=== PATIENT | male | born 1965 | race African-American/Black ===

== ENCOUNTER → 2019-12-15 | Day surgery (SDC) | payer OTHER ==
[~2019-12-15] MED LIST: ALPRAZOLAM2 MG PO; FENTANYL CITRATE/PF 100MCG/2 ML INJ ONE; HUMALOG SQ; PROPOFOL IV EMULSION 10 MG/ML 20 ML VIAL ONE; ULTRAM 50MG50 MG PO
--- OUTSIDE RECORDS SUMMARY | 2019-12-15 11:35 | XMS REPORT ---
[facility] Address Unknown Phone Unavailable Care Team Providers Care Rivet Sticker Name Role Phone UNKNOWN, REFFERING PP Unavailable RASSOLI, AMIR Unavailable Unavailable BADAR, VANIA Unavailable Unavailable Problems This patient has no known problems. Allergies, Adverse Reactions, Alerts This patient has no known allergies or adverse reactions. Medications This patient has no known medications. Encounters Start Date/Time End Date/Time Encounter Type Admission Type Attending [facility] Care Facility Care Department Encounter ID 2019-02-05 09:13:39 Inpatient [facility] [id number] 2019-02-04 15:26:05 Inpatient [facility] [id number] 2019-02-03 11:28:53 Inpatient [facility] [id number] 2019-02-03 00:00:00 Inpatient [facility] [id number] 2019-06-18 15:34:00 2019-06-18 15:34:00 Emergency [facility] [id number] 2019-03-30 00:00:00 2019-03-30 00:00:00 Outpatient [facility] [id number] 2019-02-11 00:00:00 2019-02-11 00:00:00 Outpatient [facility] [id number] 2019-02-11 00:00:00 2019-02-11 00:00:00 Outpatient [facility] [id number] 2019-02-08 00:34:53 2019-02-08 00:34:53 Emergency [facility] [id number] 2019-02-07 16:14:38 2019-02-07 16:14:38 Emergency [facility] [id number] 2019-02-07 15:47:08 2019-02-07 15:47:08 Emergency [facility] [id number] 2019-02-04 00:00:00 2019-02-04 00:00:00 Outpatient [facility] [id number] 2019-02-03 06:28:59 2019-02-03 06:28:59 Emergency [facility] [id number] 2019-02-03 03:33:48 2019-02-03 03:33:48 Inpatient [facility] [id number] 2019-02-02 00:00:00 2019-02-02 00:00:00 Outpatient [facility] [id number] 2018-12-28 09:29:52 2018-12-28 09:29:52 Outpatient [facility] [id number] 2018-12-28 00:00:00 2018-12-28 00:00:00 Outpatient [facility] [id number] 2018-12-25 00:00:00 2018-12-25 00:00:00 Outpatient [facility] [id number] 2018-12-25 00:00:00 2018-12-25 00:00:00 Outpatient [facility] [id number] 2018-12-09 16:27:04 2018-12-09 16:27:04 Outpatient [facility] [id number] 2018-12-08 00:00:00 2018-12-08 00:00:00 Outpatient [facility] [id number] 2018-12-03 18:07:20 2018-12-03 18:07:20 Outpatient [facility] [id number] 2018-11-26 15:14:29 2018-11-26 15:14:29 Outpatient [facility] [id number] 2018-11-17 00:00:00 2018-11-17 00:00:00 Outpatient [facility] [id number] 2018-11-17 00:00:00 2018-11-17 00:00:00 Outpatient [facility] [id number] 2018-11-13 11:23:08 2018-11-13 11:23:08 Outpatient [facility] [id number] 2018-09-29 00:00:00 2018-09-29 00:00:00 Outpatient [facility] [id number] 2018-09-07 16:12:37 2018-09-07 16:12:37 Outpatient [facility] [id number] 2018-08-26 00:00:00 2018-08-26 00:00:00 Outpatient [facility] [id number] 2018-08-26 00:00:00 2018-08-26 00:00:00 Outpatient [facility] [id number] 2018-08-25 11:55:41 2018-08-25 11:55:41 Outpatient [facility] [id number] 2018-08-25 00:00:00 2018-08-25 00:00:00 Outpatient [facility] [id number] 2018-08-24 00:00:00 2018-08-24 00:00:00 Outpatient [facility] [id number] 2018-08-18 00:00:00 2018-08-18 00:00:00 Outpatient [facility] [id number] 2018-08-14 00:00:00 2018-08-14 00:00:00 Outpatient [facility] [id number] 2018-08-14 00:00:00 2018-08-14 00:00:00 Outpatient [facility] [id number] 2018-08-12 07:01:52 2018-08-12 07:01:52 Emergency [facility] [id number] 2018-08-12 06:51:12 2018-08-12 06:51:12 Emergency [facility] [id number] 2018-08-12 06:25:40 2018-08-12 06:25:40 Emergency [facility] [id number] 2018-08-12 00:00:00 2018-08-12 00:00:00 Outpatient [facility] [id number] 2018-08-12 00:00:00 2018-08-12 00:00:00 Outpatient [facility] [id number] 2018-08-03 00:00:00 2018-08-03 00:00:00 Outpatient [facility] [id number] 2018-07-31 00:00:00 2018-07-31 00:00:00 Outpatient [facility] [id number] 2018-07-13 00:00:00 2018-07-13 00:00:00 Outpatient [facility] [id number] 2018-06-29 00:00:00 2018-06-29 00:00:00 Outpatient [facility] [id number] 2018-06-01 13:56:51 2018-06-01 13:56:51 Outpatient [facility] [id number] 2018-05-15 00:00:00 2018-05-15 00:00:00 Outpatient [facility] [id number] 2018-05-08 09:01:56 2018-05-08 09:01:56 Outpatient [facility] [id number] 2018-05-05 09:41:35 2018-05-05 09:41:35 Outpatient [facility] [id number] 2018-04-28 08:35:35 2018-04-28 08:35:35 Outpatient [facility] [id number] 2018-04-23 02:09:33 2018-04-23 02:09:33 Emergency [facility] [id number] 2018-04-21 15:59:22 2018-04-21 15:59:22 Outpatient [facility] [id number] 2018-04-20 18:16:36 2018-04-20 18:16:36 Outpatient [facility] [id number] 2018-04-17 12:35:21 2018-04-17 12:35:21 Outpatient [facility] [id number] 2018-04-15 15:00:18 2018-04-15 15:00:18 Emergency [facility] [id number] 2018-04-15 13:57:45 2018-04-15 13:57:45 Outpatient [facility] [id number] 2018-04-15 11:13:55 2018-04-15 11:13:55 Emergency [facility] [id number] 2018-04-15 00:00:00 2018-04-15 00:00:00 Outpatient [facility] [id number] 2018-04-14 09:03:00 2018-04-14 09:03:00 Emergency [facility] [id number] 2018-04-08 08:37:15 2018-04-08 08:37:15 Outpatient [facility] [id number] 2018-04-02 00:00:00 2018-04-02 00:00:00 Outpatient [facility] [id number] 2018-04-02 00:00:00 2018-04-02 00:00:00 Outpatient [facility] [id number] 2018-04-01 12:57:41 2018-04-01 12:57:41 Emergency [facility] [id number] 2018-04-01 12:40:35 2018-04-01 12:40:35 Emergency [facility] [id number] 2018-04-01 07:56:52 2018-04-01 07:56:52 Emergency [facility] [id number] 2018-04-01 04:16:50 2018-04-01 04:16:50 Emergency [facility] [id number] 2018-04-01 00:00:00 2018-04-01 00:00:00 Outpatient [facility] [id number] 2018-03-31 15:21:39 2018-03-31 15:21:39 Outpatient [facility] [id number] 2018-03-31 14:16:05 2018-03-31 14:16:05 Outpatient [facility] [id number] 2018-03-26 08:46:00 2018-03-26 08:46:00 Outpatient [facility] [id number] 2018-03-24 00:00:00 2018-03-24 00:00:00 Outpatient [facility] [id number] 2018-03-20 00:00:00 2018-03-20 00:00:00 Outpatient [facility] [id number] 2018-03-16 21:52:37 2018-03-16 21:52:37 Emergency [facility] [id number] 2018-03-16 20:55:29 2018-03-16 20:55:29 Emergency [facility] [id number] 2018-03-16 17:21:50 2018-03-16 17:21:50 Emergency [facility] [id number] 2018-03-16 15:45:43 2018-03-16 15:45:43 Outpatient [facility] [id number] 2018-03-16 13:36:57 2018-03-16 13:36:57 Outpatient [facility] [id number] 2018-03-16 00:00:00 2018-03-16 00:00:00 Emergency [facility] [id number] 2018-03-09 17:31:27 2018-03-09 17:31:27 Outpatient [facility] [id number] 2018-03-04 11:50:05 2018-03-04 11:50:05 Outpatient [facility] [id number] 2018-02-26 14:02:34 2018-02-26 14:02:34 Outpatient [facility] [id number] 2018-02-23 16:55:59 2018-02-23 16:55:59 Outpatient [facility] [id number] 2018-02-21 10:18:15 2018-02-21 10:18:15 Emergency [facility] [id number] 2018-02-20 15:01:06 2018-02-20 15:01:06 Outpatient [facility] [id number] 2018-02-20 14:24:00 2018-02-20 14:24:00 Emergency [facility] [id number] 2018-02-20 00:00:00 2018-02-20 00:00:00 Outpatient [facility] [id number] 2018-02-20 00:00:00 2018-02-20 00:00:00 Outpatient [facility] [id number] 2018-02-19 13:11:25 2018-02-19 13:11:25 Outpatient [facility] [id number] 2018-02-19 00:00:00 2018-02-19 00:00:00 Outpatient [facility] [id number] 2018-02-17 10:35:11 2018-02-17 10:35:11 Outpatient [facility] [id number] 2018-02-12 20:17:33 2018-02-12 20:17:33 Emergency [facility] [id number] 2018-02-12 16:19:07 2018-02-12 16:19:07 Emergency [facility] [id number] 2018-02-02 00:00:00 2018-02-02 00:00:00 Outpatient [facility] [id number] 2018-01-30 20:13:39 2018-01-30 20:13:39 Emergency [facility] [id number] 2018-01-15 00:00:00 2018-01-15 00:00:00 Outpatient [facility] [id number] 2018-01-14 14:00:46 2018-01-14 14:00:46 Outpatient [facility] [id number] 2018-01-14 00:00:00 2018-01-14 00:00:00 Outpatient [facility] [id number] 2018-01-12 15:12:51 2018-01-12 15:12:51 Outpatient [facility] [id number] 2018-01-10 07:18:13 2018-01-10 07:18:13 Emergency [facility] [id number] 2018-01-09 13:53:00 2018-01-09 13:53:00 Emergency [facility] [id number] 2018-01-05 00:00:00 2018-01-05 00:00:00 Outpatient [facility] [id number] 2018-01-05 00:00:00 2018-01-05 00:00:00 Outpatient [facility] [id number] 2017-12-31 15:07:51 2017-12-31 15:07:51 Outpatient [facility] [id number] 2017-12-25 08:17:25 2017-12-25 08:17:25 Outpatient [facility] [id number] 2017-12-25 06:23:18 2017-12-25 06:23:18 Emergency [facility] [id number] 2017-12-23 00:00:00 2017-12-23 00:00:00 Outpatient [facility] [id number] 2017-12-22 00:00:00 2017-12-22 00:00:00 Outpatient [facility] [id number] 2017-12-22 00:00:00 2017-12-22 00:00:00 Outpatient [facility] [id number] 2017-12-15 00:00:00 2017-12-15 00:00:00 Outpatient [facility] [id number] 2017-12-08 00:00:00 2017-12-08 00:00:00 Outpatient [facility] [id number] 2017-12-02 00:00:00 2017-12-02 00:00:00 Outpatient [facility] [id number] 2017-12-02 00:00:00 2017-12-02 00:00:00 Outpatient [facility] [id number] 2017-11-27 00:00:00 2017-11-27 00:00:00 Outpatient [facility] [id number] 2017-11-18 00:00:00 2017-11-18 00:00:00 Outpatient [facility] [id number] 2017-11-14 00:00:00 2017-11-14 00:00:00 Outpatient [facility] [id number] 2017-11-08 12:57:31 2017-11-08 12:57:31 Emergency [facility] [id number] 2017-11-06 10:52:29 2017-11-06 10:52:29 Emergency [facility] [id number] 2017-11-06 10:11:35 2017-11-06 10:11:35 Outpatient [facility] [id number] 2017-11-06 00:00:00 2017-11-06 00:00:00 Outpatient [facility] [id number] 2017-11-05 00:00:00 2017-11-05 00:00:00 Outpatient [facility] [id number] 2017-11-04 16:19:22 2017-11-04 16:19:22 Outpatient [facility] [id number] 2017-11-04 14:09:31 2017-11-04 14:09:31 Outpatient [facility] [id number] 2017-11-04 00:00:00 2017-11-04 00:00:00 Outpatient [facility] [id number] 2017-10-31 21:21:13 2017-10-31 21:21:13 Outpatient [facility] [id number] 2017-10-31 11:14:45 2017-10-31 11:14:45 Emergency [facility] [id number] 2017-10-29 00:00:00 2017-10-29 00:00:00 Outpatient [facility] [id number] 2017-10-22 00:00:00 2017-10-22 00:00:00 Outpatient [facility] [id number] 2017-10-21 00:00:00 2017-10-21 00:00:00 Outpatient [facility] [id number] 2017-10-20 11:22:26 2017-10-20 11:22:26 Outpatient [facility] [id number] 2017-10-20 00:00:00 2017-10-20 00:00:00 Outpatient [facility] [id number] 2017-10-17 00:00:00 2017-10-17 00:00:00 Outpatient [facility] [id number] 2017-10-17 00:00:00 2017-10-17 00:00:00 Outpatient [facility] [id number] 2017-10-17 00:00:00 2017-10-17 00:00:00 Outpatient [facility] [id number] 2017-10-17 00:00:00 2017-10-17 00:00:00 Outpatient [facility] [id number] 2017-10-16 00:00:00 2017-10-16 00:00:00 Outpatient [facility] [id number] 2017-10-09 00:00:00 2017-10-09 00:00:00 Outpatient [facility] [id number] 2017-10-07 14:09:41 2017-10-07 00:00:00 Inpatient [facility] [id number] 2017-10-07 08:05:01 2017-10-07 00:00:00 Inpatient [facility] [id number] 2017-10-06 00:03:09 2017-10-06 00:03:09 Emergency [facility] [id number] 2017-10-06 00:00:00 2017-10-06 00:00:00 Outpatient [facility] [id number] 2017-10-05 23:54:42 2017-10-05 23:54:42 Emergency [facility] [id number] 2017-10-05 23:27:39 2017-10-05 23:27:39 Inpatient [facility] [id number] 2017-10-05 00:00:00 2017-10-05 00:00:00 Emergency [facility] [id number] 2017-10-03 07:28:06 2017-10-03 07:28:06 Outpatient [facility] [id number] 2017-10-03 00:00:00 2017-10-03 00:00:00 Outpatient [facility] [id number] 2017-09-30 00:00:00 2017-09-30 00:00:00 Outpatient [facility] [id number] 2017-09-23 16:44:54 2017-09-23 16:44:54 Outpatient [facility] [id number] 2017-09-23 13:55:30 2017-09-23 13:55:30 Outpatient [facility] [id number] 2017-09-11 10:45:01 2017-09-11 10:45:01 Outpatient [facility] [id number] 2017-09-03 00:00:00 2017-09-03 00:00:00 Outpatient [facility] [id number] 2017-08-28 14:09:15 2017-08-28 14:09:15 Outpatient [facility] [id number] 2017-08-19 10:30:06 2017-08-19 10:30:06 Outpatient [facility] [id number] 2017-08-17 08:10:00 2017-08-17 08:10:00 Emergency [facility] [id number] 2017-08-16 10:59:31 2017-08-16 10:59:31 Emergency [facility] [id number] 2017-08-16 09:11:58 2017-08-16 09:11:58 Outpatient [facility] [id number] 2017-08-16 08:38:54 2017-08-16 08:38:54 Emergency [facility] [id number] 2017-08-16 08:38:49 2017-08-16 08:38:49 Emergency [facility] [id number] 2017-08-16 00:00:00 2017-08-16 00:00:00 Emergency [facility] [id number] 2017-08-16 00:00:00 2017-08-16 00:00:00 Outpatient [facility] [id number] 2017-08-14 17:46:36 2017-08-14 17:46:36 Outpatient [facility] [id number] 2017-08-11 05:49:29 2017-08-11 05:49:29 Outpatient [facility] [id number] 2017-08-11 01:12:29 2017-08-11 01:12:29 Emergency [facility] [id number] 2017-08-10 20:37:35 2017-08-10 20:37:35 Emergency [facility] [id number] 2017-08-10 20:00:02 2017-08-10 20:00:02 Outpatient [facility] [id number] 2017-08-10 00:00:00 2017-08-10 00:00:00 Emergency [facility] [id number] 2017-08-07 21:00:00 2017-08-07 21:00:00 Inpatient [facility] [id number] 2017-07-30 00:00:00 2017-07-30 00:00:00 Outpatient [facility] [id number] 2017-07-30 00:00:00 2017-07-30 00:00:00 Outpatient [facility] [id number] 2017-07-21 09:34:26 2017-07-21 09:34:26 Outpatient [facility] [id number] 2017-07-21 00:00:00 2017-07-21 00:00:00 Outpatient [facility] [id number] 2017-07-21 00:00:00 2017-07-21 00:00:00 Outpatient [facility] [id number] 2017-07-16 15:47:17 2017-07-16 15:47:17 Outpatient [facility] [id number] 2017-07-15 08:18:07 2017-07-15 08:18:07 Outpatient [facility] [id number] 2017-07-14 00:00:00 2017-07-14 00:00:00 Outpatient [facility] [id number] 2017-07-10 10:27:34 2017-07-10 10:27:34 Outpatient [facility] [id number] 2017-07-10 00:00:00 2017-07-10 00:00:00 Outpatient [facility] [id number] 2017-06-25 09:22:00 2017-06-25 09:22:00 Outpatient [facility] [id number] 2017-06-25 08:20:12 2017-06-25 08:20:12 Outpatient [facility] [id number] 2017-06-25 00:00:00 2017-06-25 00:00:00 Outpatient [facility] [id number] 2017-06-23 00:00:00 2017-06-23 00:00:00 Outpatient [facility] [id number] 2017-06-23 00:00:00 2017-06-23 00:00:00 Outpatient [facility] [id number] 2017-06-16 13:45:52 2017-06-16 13:45:52 Outpatient [facility] [id number] 2017-06-13 13:50:02 2017-06-13 13:50:02 Outpatient [facility] [id number] 2017-06-02 10:05:47 2017-06-02 10:05:47 Outpatient [facility] [id number] 2017-05-27 00:00:00 2017-05-27 00:00:00 Outpatient [facility] [id number] 2017-05-27 00:00:00 2017-05-27 00:00:00 Outpatient [facility] [id number] 2017-05-27 00:00:00 2017-05-27 00:00:00 Outpatient [facility] [id number] 2017-05-26 16:05:48 2017-05-26 16:05:48 Outpatient [facility] [id number] 2017-05-22 13:14:34 2017-05-22 13:14:34 Outpatient [facility] [id number] 2017-05-19 11:33:17 2017-05-19 11:33:17 Outpatient [facility] [id number] 2017-05-19 00:00:00 2017-05-19 00:00:00 Outpatient [facility] [id number] 2017-05-05 13:05:35 2017-05-05 13:05:35 Outpatient [facility] [id number] 2017-04-29 18:57:43 2017-04-29 18:57:43 Outpatient [facility] [id number] 2017-04-25 00:41:00 2017-04-25 00:41:00 Emergency [facility] [id number] 2017-04-25 00:00:00 2017-04-25 00:00:00 Outpatient [facility] [id number] 2017-04-25 00:00:00 2017-04-25 00:00:00 Outpatient [facility] [id number] 2017-04-25 00:00:00 2017-04-25 00:00:00 Outpatient [facility] [id number] 2017-04-25 00:00:00 2017-04-25 00:00:00 Outpatient [facility] [id number] 2017-04-24 17:50:52 2017-04-24 17:50:52 Outpatient [facility] [id number] 2017-04-24 14:55:23 2017-04-24 14:55:23 Outpatient [facility] [id number] 2017-04-24 10:45:55 2017-04-24 10:45:55 Outpatient [facility] [id number] 2017-04-22 17:33:01 2017-04-22 17:33:01 Outpatient [facility] [id number] 2017-04-22 15:42:23 2017-04-22 15:42:23 Outpatient [facility] [id number] 2017-04-22 12:52:58 2017-04-22 12:52:58 Outpatient [facility] [id number] Results Test Description Test Time Test Comments Text Results Atomic Results Result Comments Comprehensive Metabolic Panel 2019-12-03 03:33:21 Sodium Level (test code=Sodium Level) 139.0 mmol/L 135.0-145.0 Potassium Level (test code=Potassium Level) 3.3 mmol/L 3.5-5.1 Chloride Level (test code=Chloride Level) 103 mmol/L 98-105 CO2 (test code=CO2) 23 mmol/L 22-29 Anion Gap (test code=Anion Gap) 13 mmol/L 7-16 BUN (test code=BUN) 12.10 mg/dL 6.00-20.00 Creatinine Level (test code=Creatinine Level) 1.00 mg/dL 0.70-1.20 BUN/Creat Ratio (test code=BUN/Creat Ratio) 12 Glucose Level (test code=Glucose Level) 113 mg/dL 70-115 Calcium Level (test code=Calcium Level) 8.8 mg/dL 8.3-10.5 Alk Phos (test code=Alk Phos) 115 U/L 40-129 Bilirubin Total (test code=Bilirubin Total) 0.5 mg/dL 0.1-0.9 Albumin Level (test code=Albumin Level) 3.8 g/dL 3.5-5.2 Protein Total (test code=Protein Total) 6.5 g/dL 6.4-8.3 ALT (test code=ALT) 18 U/L 1-41 AST (test code=AST) see comment U/L 1-40 ast=29Specimen hemolyzed. Globulin (test code=Globulin) 2.7 g/dL 2.9-3.1 A/G Ratio (test code=A/G Ratio) 1.4 ratio Comprehensive Metabolic [id number] 03:33:21* Test Item Value Reference Range Comments Sodium Level (test code=Sodium Level) 139.0 mmol/L 135.0-145.0 Potassium Level (test code=Potassium Level) 3.3 mmol/L 3.5-5.1 Chloride Level (test code=Chloride Level) 103 mmol/L 98-105 CO2 (test code=CO2) 23 mmol/L 22-29 Anion Gap (test code=Anion Gap) 13 mmol/L 7-16 BUN (test code=BUN) 12.10 mg/dL 6.00-20.00 Creatinine Level (test code=Creatinine Level) 1.00 mg/dL 0.70-1.20 BUN/Creat Ratio (test code=BUN/Creat Ratio) 12 Glucose Level (test code=Glucose Level) 113 mg/dL 70-115 Calcium Level (test code=Calcium Level) 8.8 mg/dL 8.3-10.5 Alk Phos (test code=Alk Phos) 115 U/L 40-129 Bilirubin Total (test code=Bilirubin Total) 0.5 mg/dL 0.1-0.9 Albumin Level (test code=Albumin Level) 3.8 g/dL 3.5-5.2 Protein Total (test code=Protein Total) 6.5 g/dL 6.4-8.3 ALT (test code=ALT) 18 U/L 1-41 AST (test code=AST) see comment U/L 1-40 ast=29Specimen hemolyzed. Globulin (test code=Globulin) 2.7 g/dL 2.9-3.1 A/G Ratio (test code=A/G Ratio) 1.4 ratio eGFR AA (test code=eGFR AA) >60 mL/min/1.73 m2 eGFR (estimated Glomerular Filtration Rate) is an estimated value, calculated from the patient's serum creatinine using the MDRD equation. It is NOT the patient's actual GFR. The eGFR provides a more clinically useful measure of kidney disease than serum creatinine alone.This calculation takes sex and race into account, if the information is provided. If the race is not provided, and the patient is -[place], multiply by 1.212. If sex is not provided, and the patient is female, multiply by 0.742. Results for patients <18 years of age have not been validated by the MDRD study and should be interpreted with caution. eGFR Result Interpretation:eGFR > or=60 is in the Normal RangeeGFR < 60 may mean kidney diseaseeGFR < 15 may mean kidney failure Ranges recommended by the [employer] Foundation, http://nkdep.nih.gov eGFR Non-AA (test code=eGFR Non-AA) >60.00 mL/min/1.73 m2 eGFR (estimated Glomerular Filtration Rate) is an estimated value, calculated from the patient's serum creatinine using the MDRD equation. It is NOT the patient's actual GFR. The eGFR provides a more clinically useful measure of kidney disease than serum creatinine alone.This calculation takes sex and race into account, if the information is provided. If the race is not provided, and the patient is -[place], multiply by 1.212. If sex is not provided, and the patient is female, multiply by 0.742. Results for patients <18 years of age have not been validated by the MDRD study and should be interpreted with caution. eGFR Result Interpretation:eGFR > or=60 is in the Normal RangeeGFR < 60 may mean kidney diseaseeGFR < 15 may mean kidney failure Ranges recommended by the National [employer] Foundation, http://nkdep.nih.gov Comprehensive Metabolic [id number] 03:33:21* Test Item Value Reference Range Comments Sodium Level (test code=Sodium Level) 139.0 mmol/L 135.0-145.0 Potassium Level (test code=Potassium Level) 3.3 mmol/L 3.5-5.1 Chloride Level (test code=Chloride Level) 103 mmol/L 98-105 CO2 (test code=CO2) 23 mmol/L 22-29 Anion Gap (test code=Anion Gap) 13 mmol/L 7-16 BUN (test code=BUN) 12.10 mg/dL 6.00-20.00 Creatinine Level (test code=Creatinine Level) 1.00 mg/dL 0.70-1.20 BUN/Creat Ratio (test code=BUN/Creat Ratio) 12 Glucose Level (test code=Glucose Level) 113 mg/dL 70-115 Calcium Level (test code=Calcium Level) 8.8 mg/dL 8.3-10.5 Alk Phos (test code=Alk Phos) 115 U/L 40-129 Bilirubin Total (test code=Bilirubin Total) 0.5 mg/dL 0.1-0.9 Albumin Level (test code=Albumin Level) 3.8 g/dL 3.5-5.2 Protein Total (test code=Protein Total) 6.5 g/dL 6.4-8.3 ALT (test code=ALT) 18 U/L 1-41 AST (test code=AST) see comment U/L 1-40 ast=29Specimen hemolyzed. Globulin (test code=Globulin) 2.7 g/dL 2.9-3.1 A/G Ratio (test code=A/G Ratio) 1.4 ratio eGFR AA (test code=eGFR AA) >60 mL/min/1.73 m2 eGFR (estimated Glomerular Filtration Rate) is an estimated value, calculated from the patient's serum creatinine using the MDRD equation. It is NOT the patient's actual GFR. The eGFR provides a more clinically useful measure of kidney disease than serum creatinine alone.This calculation takes sex and race into account, if the information is provided. If the race is not provided, and the patient is -[place], multiply by 1.212. If sex is not provided, and the patient is female, multiply by 0.742. Results for patients <18 years of age have not been validated by the MDRD study and should be interpreted with caution. eGFR Result Interpretation:eGFR > or=60 is in the Normal RangeeGFR < 60 may mean kidney diseaseeGFR < 15 may mean kidney failure Ranges recommended by the National Kidney Foundation, http://nkdep.nih.gov eGFR Non-AA (test code=eGFR Non-AA) >60.00 mL/min/1.73 m2 eGFR (estimated Glomerular Filtration Rate) is an estimated value, calculated from the patient's serum creatinine using the MDRD equation. It is NOT the patient's actual GFR. The eGFR provides a more clinically useful measure of kidney disease than serum creatinine alone.This calculation takes sex and race into account, if the information is provided. If the race is not provided, and the patient is -Pakistani, multiply by 1.212. If sex is not provided, and the patient is female, multiply by 0.742. Results for patients <18 years of age have not been validated by the MDRD study and should be interpreted with caution. eGFR Result Interpretation:eGFR > or=60 is in the Normal RangeeGFR < 60 may mean kidney diseaseeGFR < 15 may mean kidney failure Ranges recommended by the National Kidney Foundation, http://nkdep.nih.gov Lipase [id number] 03:33:21* Test Item Value Reference Range Comments Lipase Level (test code=Lipase Level) 19 U/L -60 Lipase [id number] 23:31:04* Test Item Value Reference Range Comments Lipase Level (test code=Lipase Level) 30 U/L -60 Comprehensive Metabolic [id number] 23:31:03* Test Item Value Reference Range Comments Sodium Level (test code=Sodium Level) 138.0 mmol/L 135.0-145.0 Potassium Level (test code=Potassium Level) see comment mmol/L 3.5-5.1 k=5.4ast=59Specimen slightly hemolyzed; K and AST may be falsely elevated. Suggest verify by recollect.sridhar Chloride Level (test code=Chloride Level) 104 mmol/L 98-105 CO2 (test code=CO2) 23 mmol/L 22-29 Anion Gap (test code=Anion Gap) 11 mmol/L 7-16 BUN (test code=BUN) 17.40 mg/dL 6.00-20.00 Creatinine Level (test code=Creatinine Level) 1.10 mg/dL 0.70-1.20 BUN/Creat Ratio (test code=BUN/Creat Ratio) 16 Glucose Level (test code=Glucose Level) 256 mg/dL 70-115 Calcium Level (test code=Calcium Level) 8.5 mg/dL 8.3-10.5 Alk Phos (test code=Alk Phos) 86 U/L 40-129 Bilirubin Total (test code=Bilirubin Total) 0.3 mg/dL 0.1-0.9 Albumin Level (test code=Albumin Level) 3.2 g/dL 3.5-5.2 Protein Total (test code=Protein Total) 5.9 g/dL 6.4-8.3 ALT (test code=ALT) 21 U/L 1-41 AST (test code=AST) see comment U/L 1-40 k=5.4ast=59Specimen slightly hemolyzed; K and AST may be falsely elevated. Suggest verify by recollect.marioer Globulin (test code=Globulin) 2.7 g/dL 2.9-3.1 A/G Ratio (test code=A/G Ratio) 1.2 ratio Comprehensive Metabolic [id number] 23:31:03* Test Item Value Reference Range Comments Sodium Level (test code=Sodium Level) 138.0 mmol/L 135.0-145.0 Potassium Level (test code=Potassium Level) see comment mmol/L 3.5-5.1 k=5.4ast=59Specimen slightly hemolyzed; K and AST may be falsely elevated. Suggest verify by recollect.marioer Chloride Level (test code=Chloride Level) 104 mmol/L 98-105 CO2 (test code=CO2) 23 mmol/L 22-29 Anion Gap (test code=Anion Gap) 11 mmol/L 7-16 BUN (test code=BUN) 17.40 mg/dL 6.00-20.00 Creatinine Level (test code=Creatinine Level) 1.10 mg/dL 0.70-1.20 BUN/Creat Ratio (test code=BUN/Creat Ratio) 16 Glucose Level (test code=Glucose Level) 256 mg/dL 70-115 Calcium Level (test code=Calcium Level) 8.5 mg/dL 8.3-10.5 Alk Phos (test code=Alk Phos) 86 U/L 40-129 Bilirubin Total (test code=Bilirubin Total) 0.3 mg/dL 0.1-0.9 Albumin Level (test code=Albumin Level) 3.2 g/dL 3.5-5.2 Protein Total (test code=Protein Total) 5.9 g/dL 6.4-8.3 ALT (test code=ALT) 21 U/L 1-41 AST (test code=AST) see comment U/L 1-40 k=5.4ast=59Specimen slightly hemolyzed; K and AST may be falsely elevated. Suggest verify by recollect.marioer Globulin (test code=Globulin) 2.7 g/dL 2.9-3.1 A/G Ratio (test code=A/G Ratio) 1.2 ratio eGFR AA (test code=eGFR AA) >60 mL/min/1.73 m2 eGFR (estimated Glomerular Filtration Rate) is an estimated value, calculated from the patient's serum creatinine using the MDRD equation. It is NOT the patient's actual GFR. The eGFR provides a more clinically useful measure of kidney disease than serum creatinine alone.This calculation takes sex and race into account, if the information is provided. If the race is not provided, and the patient is -Pakistani, multiply by 1.212. If sex is not provided, and the patient is female, multiply by 0.742. Results for patients <18 years of age have not been validated by the MDRD study and should be interpreted with caution. eGFR Result Interpretation:eGFR > or=60 is in the Normal RangeeGFR < 60 may mean kidney diseaseeGFR < 15 may mean kidney failure Ranges recommended by the National Kidney Foundation, http://nkdep.nih.gov Comprehensive Metabolic [id number] 23:31:03* Test Item Value Reference Range Comments Sodium Level (test code=Sodium Level) 138.0 mmol/L 135.0-145.0 Potassium Level (test code=Potassium Level) see comment mmol/L 3.5-5.1 k=5.4ast=59Specimen slightly hemolyzed; K and AST may be falsely elevated. Suggest verify by recollect.sridhar Chloride Level (test code=Chloride Level) 104 mmol/L 98-105 CO2 (test code=CO2) 23 mmol/L 22-29 Anion Gap (test code=Anion Gap) 11 mmol/L 7-16 BUN (test code=BUN) 17.40 mg/dL 6.00-20.00 Creatinine Level (test code=Creatinine Level) 1.10 mg/dL 0.70-1.20 BUN/Creat Ratio (test code=BUN/Creat Ratio) 16 Glucose Level (test code=Glucose Level) 256 mg/dL 70-115 Calcium Level (test code=Calcium Level) 8.5 mg/dL 8.3-10.5 Alk Phos (test code=Alk Phos) 86 U/L 40-129 Bilirubin Total (test code=Bilirubin Total) 0.3 mg/dL 0.1-0.9 Albumin Level (test code=Albumin Level) 3.2 g/dL 3.5-5.2 Protein Total (test code=Protein Total) 5.9 g/dL 6.4-8.3 ALT (test code=ALT) 21 U/L 1-41 AST (test code=AST) see comment U/L 1-40 k=5.4ast=59Specimen slightly hemolyzed; K and AST may be falsely elevated. Suggest verify by recollect.marioer Globulin (test code=Globulin) 2.7 g/dL 2.9-3.1 A/G Ratio (test code=A/G Ratio) 1.2 ratio eGFR AA (test code=eGFR AA) >60 mL/min/1.73 m2 eGFR (estimated Glomerular Filtration Rate) is an estimated value, calculated from the patient's serum creatinine using the MDRD equation. It is NOT the patient's actual GFR. The eGFR provides a more clinically useful measure of kidney disease than serum creatinine alone.This calculation takes sex and race into account, if the information is provided. If the race is not provided, and the patient is -[place]istani, multiply by 1.212. If sex is not provided, and the patient is female, multiply by 0.742. Results for patients <18 years of age have not been validated by the MDRD study and should be interpreted with caution. eGFR Result Interpretation:eGFR > or=60 is in the Normal RangeeGFR < 60 may mean kidney diseaseeGFR < 15 may mean kidney failure Ranges recommended by the National Kidney Foundation, http://nkdep.nih.gov eGFR Non-AA (test code=eGFR Non-AA) >60.00 mL/min/1.73 m2 eGFR (estimated Glomerular Filtration Rate) is an estimated value, calculated from the patient's serum creatinine using the MDRD equation. It is NOT the patient's actual GFR. The eGFR provides a more clinically useful measure of kidney disease than serum creatinine alone.This calculation takes sex and race into account, if the information is provided. If the race is not provided, and the patient is -[place], multiply by 1.212. If sex is not provided, and the patient is female, multiply by 0.742. Results for patients <18 years of age have not been validated by the MDRD study and should be interpreted with caution. eGFR Result Interpretation:eGFR > or=60 is in the Normal RangeeGFR < 60 may mean kidney diseaseeGFR < 15 may mean kidney failure Ranges recommended by the National Kidney Foundation, http://nkdep.nih.gov Complete Blood Count with [id number] 23:12:47* Test Item Value Reference Range Comments WBC (test code=WBC) 5.8 x10 4.4-10.5 RBC (test code=RBC) 3.68 x10 4.10-5.70 Hgb (test code=Hgb) 11.8 g/dL 13.4-17.4 Hct (test code=Hct) 34.5 % 38.7-52.0 MCV (test code=MCV) 93.80 fL 80.00-100.00 MCHC (test code=MCHC) 34.20 g/dL 32.00-37.50 RDW CV (test code=RDW CV) 13.3 % 11.5-14.5 MCH (test code=MCH) 32.1 pg 27.0-32.5 Platelets (test code=Platelets) 250.0 x10 140.0-440.0 MPV (test code=MPV) 8.5 fL Slide Review (test code=Slide Review) Auto Auto Result created by [email or web address]_REV_AUTO nRBC (test code=nRBC) 0 NRBC Abs (test code=NRBC Abs) 0.00 x10 IPF (test code=IPF) 0 % Automated [id number] 23:12:47* Test Item Value Reference Range Comments Neutro Auto (test code=Neutro Auto) 58.9 % 36.0-70.0 Lymph Auto (test code=Lymph Auto) 29.2 % 12.0-44.0 Sheridan Auto (test code=Sheridan Auto) 9.0 % 0.0-11.0 Eos, Auto (test code=Eos, Auto) 1.7 % 0.0-7.0 Basophil Auto (test code=Basophil Auto) 1.0 % 0.0-2.0 Neutro Absolute (test code=Neutro Absolute) 3.4 x10 1.6-7.4 Lymph Absolute (test code=Lymph Absolute) 1.69 x10 .50-4.60 Sheridan Absolute (test code=Sheridan Absolute) .52 x10 .00-1.20 Eos Absolute (test code=Eos Absolute) 0.10 x10 0.00-0.74 Baso Absolute (test code=Baso Absolute) 0.06 x10 0.00-0.21 IG [id number] 23:12:47* Test Item Value Reference Range Comments IG (test code=IG) 0.2 % 0.0-5.0 IG Abs (test code=IG Abs) 0 x10 Comprehensive Metabolic [id number] 09:03:20* Test Item Value Reference Range Comments Sodium Level (test code=Sodium Level) 138.0 mmol/L 135.0-145.0 Potassium Level (test code=Potassium Level) 3.4 mmol/L 3.5-5.1 Chloride Level (test code=Chloride Level) 93 mmol/L 98-105 CO2 (test code=CO2) 27 mmol/L 22-29 Anion Gap (test code=Anion Gap) 18 mmol/L 7-16 BUN (test code=BUN) 8.80 mg/dL 6.00-20.00 Creatinine Level (test code=Creatinine Level) 1.10 mg/dL 0.70-1.20 BUN/Creat Ratio (test code=BUN/Creat Ratio) 8 Glucose Level (test code=Glucose Level) 194 mg/dL 70-115 Calcium Level (test code=Calcium Level) 10.0 mg/dL 8.3-10.5 Alk Phos (test code=Alk Phos) 202 U/L 40-129 Bilirubin Total (test code=Bilirubin Total) 0.6 mg/dL 0.1-0.9 Albumin Level (test code=Albumin Level) 4.8 g/dL 3.5-5.2 Protein Total (test code=Protein Total) 8.5 g/dL 6.4-8.3 ALT (test code=ALT) 24 U/L 1-41 AST (test code=AST) 36 U/L 1-40 Globulin (test code=Globulin) 3.7 g/dL 2.9-3.1 A/G Ratio (test code=A/G Ratio) 1.3 ratio Comprehensive Metabolic [id number] 09:03:20* Test Item Value Reference Range Comments Sodium Level (test code=Sodium Level) 138.0 mmol/L 135.0-145.0 Potassium Level (test code=Potassium Level) 3.4 mmol/L 3.5-5.1 Chloride Level (test code=Chloride Level) 93 mmol/L 98-105 CO2 (test code=CO2) 27 mmol/L 22-29 Anion Gap (test code=Anion Gap) 18 mmol/L 7-16 BUN (test code=BUN) 8.80 mg/dL 6.00-20.00 Creatinine Level (test code=Creatinine Level) 1.10 mg/dL 0.70-1.20 BUN/Creat Ratio (test code=BUN/Creat Ratio) 8 Glucose Level (test code=Glucose Level) 194 mg/dL 70-115 Calcium Level (test code=Calcium Level) 10.0 mg/dL 8.3-10.5 Alk Phos (test code=Alk Phos) 202 U/L 40-129 Bilirubin Total (test code=Bilirubin Total) 0.6 mg/dL 0.1-0.9 Albumin Level (test code=Albumin Level) 4.8 g/dL 3.5-5.2 Protein Total (test code=Protein Total) 8.5 g/dL 6.4-8.3 ALT (test code=ALT) 24 U/L 1-41 AST (test code=AST) 36 U/L 1-40 Globulin (test code=Globulin) 3.7 g/dL 2.9-3.1 A/G Ratio (test code=A/G Ratio) 1.3 ratio eGFR AA (test code=eGFR AA) >60 mL/min/1.73 m2 eGFR (estimated Glomerular Filtration Rate) is an estimated value, calculated from the patient's serum creatinine using the MDRD equation. It is NOT the patient's actual GFR. The eGFR provides a more clinically useful measure of kidney disease than serum creatinine alone.This calculation takes sex and race into account, if the information is provided. If the race is not provided, and the patient is -Pakistani, multiply by 1.212. If sex is not provided, and the patient is female, multiply by 0.742. Results for patients <18 years of age have not been validated by the MDRD study and should be interpreted with caution. eGFR Result Interpretation:eGFR > or=60 is in the Normal RangeeGFR < 60 may mean kidney diseaseeGFR < 15 may mean kidney failure Ranges recommended by the National Kidney Foundation, http://nkdep.nih.gov Lipase [id number] 09:03:20* Test Item Value Reference Range Comments Lipase Level (test code=Lipase Level) 5 U/L 13-60 Comprehensive Metabolic [id number] 09:03:20* Test Item Value Reference Range Comments Sodium Level (test code=Sodium Level) 138.0 mmol/L 135.0-145.0 Potassium Level (test code=Potassium Level) 3.4 mmol/L 3.5-5.1 Chloride Level (test code=Chloride Level) 93 mmol/L 98-105 CO2 (test code=CO2) 27 mmol/L 22-29 Anion Gap (test code=Anion Gap) 18 mmol/L 7-16 BUN (test code=BUN) 8.80 mg/dL 6.00-20.00 Creatinine Level (test code=Creatinine Level) 1.10 mg/dL 0.70-1.20 BUN/Creat Ratio (test code=BUN/Creat Ratio) 8 Glucose Level (test code=Glucose Level) 194 mg/dL 70-115 Calcium Level (test code=Calcium Level) 10.0 mg/dL 8.3-10.5 Alk Phos (test code=Alk Phos) 202 U/L 40-129 Bilirubin Total (test code=Bilirubin Total) 0.6 mg/dL 0.1-0.9 Albumin Level (test code=Albumin Level) 4.8 g/dL 3.5-5.2 Protein Total (test code=Protein Total) 8.5 g/dL 6.4-8.3 ALT (test code=ALT) 24 U/L 1-41 AST (test code=AST) 36 U/L 1-40 Globulin (test code=Globulin) 3.7 g/dL 2.9-3.1 A/G Ratio (test code=A/G Ratio) 1.3 ratio eGFR AA (test code=eGFR AA) >60 mL/min/1.73 m2 eGFR (estimated Glomerular Filtration Rate) is an estimated value, calculated from the patient's serum creatinine using the MDRD equation. It is NOT the patient's actual GFR. The eGFR provides a more clinically useful measure of kidney disease than serum creatinine alone.This calculation takes sex and race into account, if the information is provided. If the race is not provided, and the patient is -Pakistani, multiply by 1.212. If sex is not provided, and the patient is female, multiply by 0.742. Results for patients <18 years of age have not been validated by the MDRD study and should be interpreted with caution. eGFR Result Interpretation:eGFR > or=60 is in the Normal RangeeGFR < 60 may mean kidney diseaseeGFR < 15 may mean kidney failure Ranges recommended by the National Kidney Foundation, http://nkdep.nih.gov eGFR Non-AA (test code=eGFR Non-AA) >60.00 mL/min/1.73 m2 eGFR (estimated Glomerular Filtration Rate) is an estimated value, calculated from the patient's serum creatinine using the MDRD equation. It is NOT the patient's actual GFR. The eGFR provides a more clinically useful measure of kidney disease than serum creatinine alone.This calculation takes sex and race into account, if the information is provided. If the race is not provided, and the patient is -Pakistani, multiply by 1.212. If sex is not provided, and the patient is female, multiply by 0.742. Results for patients <18 years of age have not been validated by the MDRD study and should be interpreted with caution. eGFR Result Interpretation:eGFR > or=60 is in the Normal RangeeGFR < 60 may mean kidney diseaseeGFR < 15 may mean kidney failure Ranges recommended by the National Kidney Foundation, http://nkdep.nih.gov Urinalysis [id number] 08:59:16* Test Item Value Reference Range Comments UA WBC (test code=UA WBC) 0-5 0-5 UA RBC (test code=UA RBC) 6-10 0-5 Complete Blood Count with [id number] 08:44:14* Test Item Value Reference Range Comments WBC (test code=WBC) 5.5 x10 4.4-10.5 RBC (test code=RBC) 5.05 x10 4.10-5.70 Hgb (test code=Hgb) 16.4 g/dL 13.4-17.4 Hct (test code=Hct) 46.5 % 38.7-52.0 MCV (test code=MCV) 92.10 fL 80.00-100.00 MCHC (test code=MCHC) 35.30 g/dL 32.00-37.50 RDW CV (test code=RDW CV) 13.0 % 11.5-14.5 MCH (test code=MCH) 32.5 pg 27.0-32.5 Platelets (test code=Platelets) 221.0 x10 140.0-440.0 MPV (test code=MPV) 8.4 fL Slide Review (test code=Slide Review) Auto Auto Result created by GL_[email or web address]_REV_AUTO nRBC (test code=nRBC) 0 NRBC Abs (test code=NRBC Abs) 0.00 x10 IPF (test code=IPF) 0 % Automated [id number] 08:44:14* Test Item Value Reference Range Comments Neutro Auto (test code=Neutro Auto) 82.2 % 36.0-70.0 Lymph Auto (test code=Lymph Auto) 13.9 % 12.0-44.0 Sheridan Auto (test code=Sheridan Auto) 3.2 % 0.0-11.0 Eos, Auto (test code=Eos, Auto) 0.0 % 0.0-7.0 Basophil Auto (test code=Basophil Auto) 0.5 % 0.0-2.0 Neutro Absolute (test code=Neutro Absolute) 4.6 x10 1.6-7.4 Lymph Absolute (test code=Lymph Absolute) .77 x10 .50-4.60 Sheridan Absolute (test code=Sheridan Absolute) .18 x10 .00-1.20 Eos Absolute (test code=Eos Absolute) 0.00 x10 0.00-0.74 Baso Absolute (test code=Baso Absolute) 0.03 x10 0.00-0.21 IG [id number] 08:44:14* Test Item Value Reference Range Comments IG (test code=IG) 0.2 % 0.0-5.0 IG Abs (test code=IG Abs) 0 x10 Urinalysis with Culture, if [id number] 08:41:05* Test Item Value Reference Range Comments UA Color (test code=UA Color) STRAW Yellow UA Appear (test code=UA Appear) CLEAR Clear UA pH (test code=UA pH) 7 UA Spec Grav (test code=UA Spec Grav) 1.010 1.001-1.035 UA Glucose (test code=UA Glucose) 300 mg/dL Negative UA Bili (test code=UA Bili) NEG Negative UA Ketones (test code=UA Ketones) 50 mg/dL Negative UA Blood (test code=UA Blood) 50 cells/mcL Negative UA Protein (test code=UA Protein) 500 mg/dL Negative UA Urobilinogen (test code=UA Urobilinogen) 0.2 mg/dL UA Nitrite (test code=UA Nitrite) NEG Negative UA Leuk Est (test code=UA Leuk Est) NEG Negative UA Micro Ind? (test code=UA Micro Ind?) Indicated Not Indicated Result created by rule GL_SJM_UA_MICRO_IND Blood [id number] 00:01:54No growth at 5 days.Urine [id number] 11:15:15 C Urine Added by GL_SJM_UA_CUL_INDNo growth at 24 hours. No growth at 48 hours.Blood [id number] 00:02:00No growth at [address] Abdomen and Pelvis w/o [id number] 23:55:31Patient: GRANT LAURENT Date/Time06/16/2019 23:29 CDTReason for ExamAbdominal painReportDictation location: H37CT ABDOMEN AND PELVIS WITHOUT IV CONTRASTHISTORY: Abdominal painCOMPARISON: None.TECHNIQUE: Axial CT images of the abdomen and pelvis were obtained with coronal and/or sagittal reformatted views. Automated exposure control, iterative reconstruction technique, and/or adjustment of mA and/or kV according to patient's size was utilized for radiation dose reduction.IV CONTRAST: None.PO CONTRAST: None.Lack of IV contrast limits evaluation of the parenchyma and vasculature.FINDINGS:Calcified granuloma noted in the left lower lobe. Thin-walled cyst in the right lower lobe. The heart size is normal.The gallbladder has been removed. The unenhanced liver, spleen, pancreas and adrenal glands are unremarkable.Both kidneys are similar in size and shape without evidence of hydronephrosis or nephrolithiasis. No ureteral stone.Urinary bladder is distended without wall thickening. The prostate is normal in size.No free air, free fluid or evidence of a bowel obstruction. The appendix is not definitely visualized, no localized infl ammatory changes or fluid collection. No bowel wall thickening.Atherosclerotic c alcifications affect the aorta and iliac arteries. No abdominal pelvic adenopath y.Probable bone island in the right femoral neck. Mild degenerative changes affe ct both hips. Mild to moderate degenerative changes affect the lumbar spine.IMPR ESSION:No evidence of nephrolithiasis or obstructive uropathy.The appendix is no t definitely visualized, no localized inflammatory changes or fluid collection.* Final Dictated by: MD Erick, Kalyan DT/TM: 9 11:52 pmSigned by: MD Erick, Chun (Electronic Signature): 11:55 pmComplete Blood Count with [id number] 23:22:13* Test Item Value Reference Range Comments WBC (test code=WBC) 7.7 x10 4.4-10.5 RBC (test code=RBC) 5.00 x10 4.10-5.70 Hgb (test code=Hgb) 15.5 g/dL 13.4-17.4 Hct (test code=Hct) 43.7 % 38.7-52.0 MCV (test code=MCV) 87.40 fL 80.00-100.00 MCHC (test code=MCHC) 35.50 g/dL 32.00-37.50 MCH (test code=MCH) 31.0 pg 27.0-32.5 RDW CV (test code=RDW CV) 12.8 % 11.5-14.5 Platelets (test code=Platelets) 222.0 x10 140.0-440.0 MPV (test code=MPV) 8.5 fL Slide Review (test code=Slide Review) Auto Auto Result created by GL_SJM_SLIDE_REV_AUTO nRBC (test code=nRBC) 0 NRBC Abs (test code=NRBC Abs) 0.00 x10 IPF (test code=IPF) 0 % Automated [id number] 23:22:13* Test Item Value Reference Range Comments Neutro Auto (test code=Neutro Auto) 78.0 % 36.0-70.0 Lymph Auto (test code=Lymph Auto) 14.9 % 12.0-44.0 Sheridan Auto (test code=Sheridan Auto) 6.9 % 0.0-11.0 Eos, Auto (test code=Eos, Auto) 0.0 % 0.0-7.0 Basophil Auto (test code=Basophil Auto) 0.1 % 0.0-2.0 Neutro Absolute (test code=Neutro Absolute) 6.0 x10 1.6-7.4 Lymph Absolute (test code=Lymph Absolute) 1.15 x10 .50-4.60 [place]idan Absolute (test code=Sheridan Absolute) .53 x10 .00-1.20 Eos Absolute (test code=Eos Absolute) 0.00 x10 0.00-0.74 Baso Absolute (test code=Baso Absolute) 0.01 x10 0.00-0.21 IG [id number] 23:22:13* Test Item Value Reference Range Comments IG (test code=IG) 0.1 % 0.0-5.0 IG Abs (test code=IG Abs) 0 x10 Creatine [id number] 23:18:10* Test Item Value Reference Range Comments CK (test code=CK) 298 U/L 39-308 Comprehensive Metabolic [id number] 23:18:02* Test Item Value Reference Range Comments Sodium Level (test code=Sodium Level) 133.0 mmol/L 135.0-145.0 Potassium Level (test code=Potassium Level) 3.0 mmol/L 3.5-5.1 Chloride Level (test code=Chloride Level) 84 mmol/L 98-105 CO2 (test code=CO2) 37 mmol/L 22-29 Anion Gap (test code=Anion Gap) 12 mmol/L 7-16 BUN (test code=BUN) 21.20 mg/dL 6.00-20.00 Creatinine Level (test code=Creatinine Level) 1.50 mg/dL 0.70-1.20 BUN/Creat Ratio (test code=BUN/Creat Ratio) 14 Glucose Level (test code=Glucose Level) 192 mg/dL 70-115 Calcium Level (test code=Calcium Level) 9.6 mg/dL 8.3-10.5 Alk Phos (test code=Alk Phos) 110 U/L 40-129 Bilirubin Total (test code=Bilirubin Total) 1.4 mg/dL 0.1-0.9 Albumin Level (test code=Albumin Level) 4.4 g/dL 3.5-5.2 Protein Total (test code=Protein Total) 7.0 g/dL 6.4-8.3 ALT (test code=ALT) 13 U/L 1-41 AST (test code=AST) 27 U/L 1-40 Globulin (test code=Globulin) 2.6 g/dL 2.9-3.1 A/G Ratio (test code=A/G Ratio) 1.7 ratio Comprehensive Metabolic [id number] 23:18:02* Test Item Value Reference Range Comments Sodium Level (test code=Sodium Level) 133.0 mmol/L 135.0-145.0 Potassium Level (test code=Potassium Level) 3.0 mmol/L 3.5-5.1 Chloride Level (test code=Chloride Level) 84 mmol/L 98-105 CO2 (test code=CO2) 37 mmol/L 22-29 Anion Gap (test code=Anion Gap) 12 mmol/L 7-16 BUN (test code=BUN) 21.20 mg/dL 6.00-20.00 Creatinine Level (test code=Creatinine Level) 1.50 mg/dL 0.70-1.20 BUN/Creat Ratio (test code=BUN/Creat Ratio) 14 Glucose Level (test code=Glucose Level) 192 mg/dL 70-115 Calcium Level (test code=Calcium Level) 9.6 mg/dL 8.3-10.5 Alk Phos (test code=Alk Phos) 110 U/L 40-129 Bilirubin Total (test code=Bilirubin Total) 1.4 mg/dL 0.1-0.9 Albumin Level (test code=Albumin Level) 4.4 g/dL 3.5-5.2 Protein Total (test code=Protein Total) 7.0 g/dL 6.4-8.3 ALT (test code=ALT) 13 U/L 1-41 AST (test code=AST) 27 U/L 1-40 Globulin (test code=Globulin) 2.6 g/dL 2.9-3.1 A/G Ratio (test code=A/G Ratio) 1.7 ratio eGFR AA (test code=eGFR AA) 59 mL/min/1.73 m2 eGFR (estimated Glomerular Filtration Rate) is an estimated value, calculated from the patient's serum creatinine using the MDRD equation. It is NOT the patient's actual GFR. The eGFR provides a more clinically useful measure of kidney disease than serum creatinine alone.This calculation takes sex and race into account, if the information is provided. If the race is not provided, and the patient is -Pakistani, multiply by 1.212. If sex is not provided, and the patient is female, multiply by 0.742. Results for patients <18 years of age have not been validated by the MDRD study and should be interpreted with caution. eGFR Result Interpretation:eGFR > or=60 is in the Normal RangeeGFR < 60 may mean kidney diseaseeGFR < 15 may mean kidney failure Ranges recommended by the National Kidney Foundation, http://nkdep.nih.gov Lipase [id number] 23:18:02* Test Item Value Reference Range Comments Lipase Level (test code=Lipase Level) 9 U/L 13-60 Lactic Acid, Plasma (Venous)2019-06-16 23:18:02* Test Item Value Reference Range Comments Lactic Acid, Plasma (Venous) (test code=Lactic Acid, Plasma (Venous)) 1.4 mmol/L 0.5-1.9 Comprehensive Metabolic [id number] 23:18:02* Test Item Value Reference Range Comments Sodium Level (test code=Sodium Level) 133.0 mmol/L 135.0-145.0 Potassium Level (test code=Potassium Level) 3.0 mmol/L 3.5-5.1 Chloride Level (test code=Chloride Level) 84 mmol/L 98-105 CO2 (test code=CO2) 37 mmol/L 22-29 Anion Gap (test code=Anion Gap) 12 mmol/L 7-16 BUN (test code=BUN) 21.20 mg/dL 6.00-20.00 Creatinine Level (test code=Creatinine Level) 1.50 mg/dL 0.70-1.20 BUN/Creat Ratio (test code=BUN/Creat Ratio) 14 Glucose Level (test code=Glucose Level) 192 mg/dL 70-115 Calcium Level (test code=Calcium Level) 9.6 mg/dL 8.3-10.5 Alk Phos (test code=Alk Phos) 110 U/L 40-129 Bilirubin Total (test code=Bilirubin Total) 1.4 mg/dL 0.1-0.9 Albumin Level (test code=Albumin Level) 4.4 g/dL 3.5-5.2 Protein Total (test code=Protein Total) 7.0 g/dL 6.4-8.3 ALT (test code=ALT) 13 U/L 1-41 AST (test code=AST) 27 U/L 1-40 Globulin (test code=Globulin) 2.6 g/dL 2.9-3.1 A/G Ratio (test code=A/G Ratio) 1.7 ratio eGFR AA (test code=eGFR AA) 59 mL/min/1.73 m2 eGFR (estimated Glomerular Filtration Rate) is an estimated value, calculated from the patient's serum creatinine using the MDRD equation. It is NOT the patient's actual GFR. The eGFR provides a more clinically useful measure of kidney disease than serum creatinine alone.This calculation takes sex and race into account, if the information is provided. If the race is not provided, and the patient is -Pakistani, multiply by 1.212. If sex is not provided, and the patient is female, multiply by 0.742. Results for patients <18 years of age have not been validated by the MDRD study and should be interpreted with caution. eGFR Result Interpretation:eGFR > or=60 is in the Normal RangeeGFR < 60 may mean kidney diseaseeGFR < 15 may mean kidney failure Ranges recommended by the National Kidney Foundation, http://nkdep.nih.gov eGFR Non-AA (test code=eGFR Non-AA) 48.77 mL/min/1.73 m2 eGFR (estimated Glomerular Filtration Rate) is an estimated value, calculated from the patient's serum creatinine using the MDRD equation. It is NOT the patient's actual GFR. The eGFR provides a more clinically useful measure of kidney disease than serum creatinine alone.This calculation takes sex and race into account, if the information is provided. If the race is not provided, and the patient is -Pakistani, multiply by 1.212. If sex is not provided, and the patient is female, multiply by 0.742. Results for patients <18 years of age have not been validated by the MDRD study and should be interpreted with caution. eGFR Result Interpretation:eGFR > or=60 is in the Normal RangeeGFR < 60 may mean kidney diseaseeGFR < 15 may mean kidney failure Ranges recommended by the National Kidney Foundation, http://nkdep.nih.gov Urinalysis [id number] 22:22:13* Test Item Value Reference Range Comments UA WBC (test code=UA WBC) 0-5 0-5 UA RBC (test code=UA RBC) 6-10 0-5 UA Bacteria (test code=UA Bacteria) Few UA Squam Epithelial (test code=UA Squam Epithelial) 0-5 UA Hyal Cast (test code=UA Hyal Cast) 6-10 Urinalysis with Culture, if [id number] 22:07:39* Test Item Value Reference Range Comments UA Color (test code=UA Color) YELLO Yellow UA Appear (test code=UA Appear) CLEAR Clear UA pH (test code=UA pH) 5 UA Spec Grav (test code=UA Spec Grav) 1.026 1.001-1.035 UA Glucose (test code=UA Glucose) 1000 mg/dL Negative UA Bili (test code=UA Bili) 1 mg/dL Negative UA Ketones (test code=UA Ketones) 50 mg/dL Negative UA Blood (test code=UA Blood) 50 cells/mcL Negative UA Protein (test code=UA Protein) 500 mg/dL Negative UA Urobilinogen (test code=UA Urobilinogen) 1 mg/dL >0.2 UA Nitrite (test code=UA Nitrite) NEG Negative UA Leuk Est (test code=UA Leuk Est) 25 cells/mcL Negative UA Micro Ind? (test code=UA Micro Ind?) Indicated Not Indicated Result created by rule GL_SJM_UA_MICRO_IND XR Chest 1 View [id number] 20:34:21Patient: GRANT LAURENT Date/Time06/16/2019 19:25 CDTReason for Examfever;Other (please specify)ReportSTUDY: Chest radiographHISTORY: FeverCOMPARISON: NoneTECHNIQUE: Frontal view of the chest.SITE: [id number]:The cardiac silhouette is unremarkable. There is a calcified granuloma at the peripheral left lower lung. There is no pleural effusion, pneumothorax or focal consolidation.No acute osseous abnormalities are identified.IMPRESSION:No focal consolidation to suggest pneumonia. Final Dictated by: Hang, MD, Jake KDictated DT/TM: 06/16/2019 8:33 pmSigned by: MD Powers Robert KSigned (Electronic Signature): 06/16/2019 8:34 pmCT Abdomen and Pelvis w/ Contrast 2019-05-31 11:43:39Patient: GRANT LAURENT Date/Time05/31/2019 11:23 CDTReason for ExamAbdominal painReportCT OF THE ABDOMEN AND PELVIS WITH CONTRASTLocation R 16HISTORY: Abdominal painTECHNIQUE:5 millimeters contrast enhanced axial images of the abdomen and pelvis provided in venous delays. No PO contrast was administered. The images were reviewed in soft tissue, lung and bone windows. Sagittal and coronal images were reformatted. One or more the following dose reduction techniques is utilized: Use of iterative reconstruction, automated exposure control, adjustment of the mAs and Kv for the patient's weight. DLP 407.5 mGy- cm. Estimated dose savings 18%.COMPARISON: CT abdomen and pelvis dated 10/07/2018.FINDINGS:Lung bases: Mild scarring at left lung base. Benign air cyst at right lung base measures 2.3 cm.Abdomen Findings:Liver: Diffuse low- attenuation throughout the liver suggesting steatosis.Gallbladder: Surgically absent. No biliary dilatation.Pancreas: No significant abnormality.Spleen: No significant abnormality. Adjacent splenule.Kidneys: Trace amount of right perinephric fluid, nonspecific. Kidneys enhance normally with no hydronephrosis or calculi.Adrenals: No significant abnormality.Bowel: Fluid-filled nondilated cecum. Other bowel loops are relatively decompressed. Appendix: Not iden tified.Peritoneum/Abdominal Wall: No evidence of free intra-abdominal air or flu id.Bone Windows: No significant abnormality.Vascular:Diffuse atherosclerosis of abdominal aorta. No aneurysm.Lymph Nodes:No significant abnormality.Pelvis Findi ngs:Bladder: No significant abnormality.Prostate: Slightly enlarged at 5 x 3.7 x 4 cm.Seminal vesicles: No significant abnormality.IMPRESSION:Exam Date/Time05/31 11:23 CDTReport1. Trace amount of right perinephric fluid, nonspecific. No rmal renal enhancement however. No hydronephrosis. Correlate with urinalysis.2. Air-fluid level in cecum. Bowel loops otherwise unremarkable. Correlate for diar aurora.3. Diffuse hepatic steatosis.4. Status post cholecystectomy with no evidenc e of biliary dilatation.5. Mild prostatomegaly. Final Dictated by: MD Domenic, Lianet FDictated DT/TM: 05/31/2019 11:35 amSigned by: Korey Garrison MD, Lianet FSigned (Electronic Signature): 05/31/2019 11:43 am Comprehensive Metabolic [id number] 09:45:29* Test Item Value Reference Range Comments Sodium Level (test code=Sodium Level) 136.0 mmol/L 135.0-145.0 Potassium Level (test code=Potassium Level) 3.4 mmol/L 3.5-5.1 Chloride Level (test code=Chloride Level) 98 mmol/L 98-105 CO2 (test code=CO2) 28 mmol/L 22-29 Anion Gap (test code=Anion Gap) 10 mmol/L 7-16 BUN (test code=BUN) 7.60 mg/dL 6.00-20.00 Creatinine Level (test code=Creatinine Level) 1.00 mg/dL 0.70-1.20 BUN/Creat Ratio (test code=BUN/Creat Ratio) 8 Glucose Level (test code=Glucose Level) 287 mg/dL 70-115 Calcium Level (test code=Calcium Level) 9.2 mg/dL 8.3-10.5 Alk Phos (test code=Alk Phos) 114 U/L 40-129 Bilirubin Total (test code=Bilirubin Total) 0.7 mg/dL 0.1-0.9 Albumin Level (test code=Albumin Level) 4.4 g/dL 3.5-5.2 Protein Total (test code=Protein Total) 7.1 g/dL 6.4-8.3 ALT (test code=ALT) 25 U/L 1-41 AST (test code=AST) 26 U/L 1-40 Globulin (test code=Globulin) 2.7 g/dL 2.9-3.1 A/G Ratio (test code=A/G Ratio) 1.6 ratio Comprehensive Metabolic [id number] 09:45:29* Test Item Value Reference Range Comments Sodium Level (test code=Sodium Level) 136.0 mmol/L 135.0-145.0 Potassium Level (test code=Potassium Level) 3.4 mmol/L 3.5-5.1 Chloride Level (test code=Chloride Level) 98 mmol/L 98-105 CO2 (test code=CO2) 28 mmol/L 22-29 Anion Gap (test code=Anion Gap) 10 mmol/L 7-16 BUN (test code=BUN) 7.60 mg/dL 6.00-20.00 Creatinine Level (test code=Creatinine Level) 1.00 mg/dL 0.70-1.20 BUN/Creat Ratio (test code=BUN/Creat Ratio) 8 Glucose Level (test code=Glucose Level) 287 mg/dL 70-115 Calcium Level (test code=Calcium Level) 9.2 mg/dL 8.3-10.5 Alk Phos (test code=Alk Phos) 114 U/L 40-129 Bilirubin Total (test code=Bilirubin Total) 0.7 mg/dL 0.1-0.9 Albumin Level (test code=Albumin Level) 4.4 g/dL 3.5-5.2 Protein Total (test code=Protein Total) 7.1 g/dL 6.4-8.3 ALT (test code=ALT) 25 U/L 1-41 AST (test code=AST) 26 U/L 1-40 Globulin (test code=Globulin) 2.7 g/dL 2.9-3.1 A/G Ratio (test code=A/G Ratio) 1.6 ratio eGFR AA (test code=eGFR AA) >60 mL/min/1.73 m2 eGFR (estimated Glomerular Filtration Rate) is an estimated value, calculated from the patient's serum creatinine using the MDRD equation. It is NOT the patient's actual GFR. The eGFR provides a more clinically useful measure of kidney disease than serum creatinine alone.This calculation takes sex and race into account, if the information is provided. If the race is not provided, and the patient is -Pakistani, multiply by 1.212. If sex is not provided, and the patient is female, multiply by 0.742. Results for patients <18 years of age have not been validated by the MDRD study and should be interpreted with caution. eGFR Result Interpretation:eGFR > or=60 is in the Normal RangeeGFR < 60 may mean kidney diseaseeGFR < 15 may mean kidney failure Ranges recommended by the National Kidney Foundation, http://nkdep.nih.gov Lipase [id number] 09:45:29* Test Item Value Reference Range Comments Lipase Level (test code=Lipase Level) 17 U/L 13-60 Comprehensive Metabolic [id number] 09:45:29* Test Item Value Reference Range Comments Sodium Level (test code=Sodium Level) 136.0 mmol/L 135.0-145.0 Potassium Level (test code=Potassium Level) 3.4 mmol/L 3.5-5.1 Chloride Level (test code=Chloride Level) 98 mmol/L 98-105 CO2 (test code=CO2) 28 mmol/L 22-29 Anion Gap (test code=Anion Gap) 10 mmol/L 7-16 BUN (test code=BUN) 7.60 mg/dL 6.00-20.00 Creatinine Level (test code=Creatinine Level) 1.00 mg/dL 0.70-1.20 BUN/Creat Ratio (test code=BUN/Creat Ratio) 8 Glucose Level (test code=Glucose Level) 287 mg/dL 70-115 Calcium Level (test code=Calcium Level) 9.2 mg/dL 8.3-10.5 Alk Phos (test code=Alk Phos) 114 U/L 40-129 Bilirubin Total (test code=Bilirubin Total) 0.7 mg/dL 0.1-0.9 Albumin Level (test code=Albumin Level) 4.4 g/dL 3.5-5.2 Protein Total (test code=Protein Total) 7.1 g/dL 6.4-8.3 ALT (test code=ALT) 25 U/L 1-41 AST (test code=AST) 26 U/L 1-40 Globulin (test code=Globulin) 2.7 g/dL 2.9-3.1 A/G Ratio (test code=A/G Ratio) 1.6 ratio eGFR AA (test code=eGFR AA) >60 mL/min/1.73 m2 eGFR (estimated Glomerular Filtration Rate) is an estimated value, calculated from the patient's serum creatinine using the MDRD equation. It is NOT the patient's actual GFR. The eGFR provides a more clinically useful measure of kidney disease than serum creatinine alone.This calculation takes sex and race into account, if the information is provided. If the race is not provided, and the patient is -Pakistani, multiply by 1.212. If sex is not provided, and the patient is female, multiply by 0.742. Results for patients <18 years of age have not been validated by the MDRD study and should be interpreted with caution. eGFR Result Interpretation:eGFR > or=60 is in the Normal RangeeGFR < 60 may mean kidney diseaseeGFR < 15 may mean kidney failure Ranges recommended by the National Kidney Foundation, http://nkdep.nih.gov eGFR Non-AA (test code=eGFR Non-AA) >60.00 mL/min/1.73 m2 eGFR (estimated Glomerular Filtration Rate) is an estimated value, calculated from the patient's serum creatinine using the MDRD equation. It is NOT the patient's actual GFR. The eGFR provides a more clinically useful measure of kidney disease than serum creatinine alone.This calculation takes sex and race into account, if the information is provided. If the race is not provided, and the patient is -Pakistani, multiply by 1.212. If sex is not provided, and the patient is female, multiply by 0.742. Results for patients <18 years of age have not been validated by the MDRD study and should be interpreted with caution. eGFR Result Interpretation:eGFR > or=60 is in the Normal RangeeGFR < 60 may mean kidney diseaseeGFR < 15 may mean kidney failure Ranges recommended by the National Kidney Foundation, http://nkdep.nih.gov Complete Blood Count with [id number] 09:30:40* Test Item Value Reference Range Comments WBC (test code=WBC) 3.7 x10 4.4-10.5 RBC (test code=RBC) 4.35 x10 4.10-5.70 Hgb (test code=Hgb) 13.4 g/dL 13.4-17.4 MCV (test code=MCV) 87.40 fL 80.00-100.00 Hct (test code=Hct) 38.0 % 38.7-52.0 MCHC (test code=MCHC) 35.30 g/dL 32.00-37.50 RDW CV (test code=RDW CV) 12.3 % 11.5-14.5 MCH (test code=MCH) 30.8 pg 27.0-32.5 Platelets (test code=Platelets) 161.0 x10 140.0-440.0 MPV (test code=MPV) 9.1 fL Slide Review (test code=Slide Review) Auto Auto Result created by GL_[email or web address]_SLIDE_REV_AUTO nRBC (test code=nRBC) 0 NRBC Abs (test code=NRBC Abs) 0.00 x10 IPF (test code=IPF) 0 % Automated [id number] 09:30:40* Test Item Value Reference Range Comments Neutro Auto (test code=Neutro Auto) 72.5 % 36.0-70.0 Lymph Auto (test code=Lymph Auto) 20.5 % 12.0-44.0 Sheridan Auto (test code=Sheridan Auto) 5.9 % 0.0-11.0 Eos, Auto (test code=Eos, Auto) 0.3 % 0.0-7.0 Basophil Auto (test code=Basophil Auto) 0.5 % 0.0-2.0 Neutro Absolute (test code=Neutro Absolute) 2.7 x10 1.6-7.4 Lymph Absolute (test code=Lymph Absolute) .76 x10 .50-4.60 Sheridan Absolute (test code=Sheridan Absolute) .22 x10 .00-1.20 Eos Absolute (test code=Eos Absolute) 0.01 x10 0.00-0.74 Baso Absolute (test code=Baso Absolute) 0.02 x10 0.00-0.21 IG [id number] 09:30:40* Test Item Value Reference Range Comments IG (test code=IG) 0.3 % 0.0-5.0 IG Abs (test code=IG Abs) 0 x10 Urinalysis [id number] 08:39:51* Test Item Value Reference Range Comments UA WBC (test code=UA WBC) 0-5 0-5 UA RBC (test code=UA RBC) 20-29 0-5 UA Bacteria (test code=UA Bacteria) None Seen UA Squam Epithelial (test code=UA Squam Epithelial) 6-10 Urinalysis with Microscopic if [id number] 08:32:11* Test Item Value Reference Range Comments UA Color (test code=UA Color) STRAW Yellow UA Appear (test code=UA Appear) CLEAR Clear UA pH (test code=UA pH) 7 UA Spec Grav (test code=UA Spec Grav) 1.013 1.001-1.035 UA Glucose (test code=UA Glucose) 1000 mg/dL Negative UA Ketones (test code=UA Ketones) NEG Negative UA Blood (test code=UA Blood) 50 cells/mcL Negative UA Protein (test code=UA Protein) 150 mg/dL Negative UA Bili (test code=UA Bili) NEG Negative UA Urobilinogen (test code=UA Urobilinogen) 0.2 mg/dL UA Nitrite (test code=UA Nitrite) NEG Negative UA Leuk Est (test code=UA Leuk Est) NEG Negative UA Micro Ind? (test code=UA Micro Ind?) Indicated Not Indicated Result created by rule GL_SJM_UA_MICRO_IND Comprehensive Metabolic [id number] 09:40:14* Test Item Value Reference Range Comments Sodium Level (test code=Sodium Level) 139.0 mmol/L 135.0-145.0 Potassium Level (test code=Potassium Level) 4.0 mmol/L 3.5-5.1 Chloride Level (test code=Chloride Level) 100 mmol/L 98-105 CO2 (test code=CO2) 22 mmol/L 22-29 Anion Gap (test code=Anion Gap) 17 mmol/L 7-16 BUN (test code=BUN) 9.40 mg/dL 6.00-20.00 Creatinine Level (test code=Creatinine Level) 1.00 mg/dL 0.70-1.20 BUN/Creat Ratio (test code=BUN/Creat Ratio) 9 Glucose Level (test code=Glucose Level) 269 mg/dL 70-115 Calcium Level (test code=Calcium Level) 9.4 mg/dL 8.3-10.5 Alk Phos (test code=Alk Phos) 109 U/L 40-129 Bilirubin Total (test code=Bilirubin Total) 0.6 mg/dL 0.1-0.9 Albumin Level (test code=Albumin Level) 4.1 g/dL 3.5-5.2 Protein Total (test code=Protein Total) 7.4 g/dL 6.4-8.3 ALT (test code=ALT) 12 U/L 1-41 AST (test code=AST) 23 U/L 1-40 Globulin (test code=Globulin) 3.3 g/dL 2.9-3.1 A/G Ratio (test code=A/G Ratio) 1.2 ratio Comprehensive Metabolic [id number] 09:40:14* Test Item Value Reference Range Comments Sodium Level (test code=Sodium Level) 139.0 mmol/L 135.0-145.0 Potassium Level (test code=Potassium Level) 4.0 mmol/L 3.5-5.1 Chloride Level (test code=Chloride Level) 100 mmol/L 98-105 CO2 (test code=CO2) 22 mmol/L 22-29 Anion Gap (test code=Anion Gap) 17 mmol/L 7-16 BUN (test code=BUN) 9.40 mg/dL 6.00-20.00 Creatinine Level (test code=Creatinine Level) 1.00 mg/dL 0.70-1.20 BUN/Creat Ratio (test code=BUN/Creat Ratio) 9 Glucose Level (test code=Glucose Level) 269 mg/dL 70-115 Calcium Level (test code=Calcium Level) 9.4 mg/dL 8.3-10.5 Alk Phos (test code=Alk Phos) 109 U/L 40-129 Bilirubin Total (test code=Bilirubin Total) 0.6 mg/dL 0.1-0.9 Albumin Level (test code=Albumin Level) 4.1 g/dL 3.5-5.2 Protein Total (test code=Protein Total) 7.4 g/dL 6.4-8.3 ALT (test code=ALT) 12 U/L 1-41 AST (test code=AST) 23 U/L 1-40 Globulin (test code=Globulin) 3.3 g/dL 2.9-3.1 A/G Ratio (test code=A/G Ratio) 1.2 ratio eGFR AA (test code=eGFR AA) >60 mL/min/1.73 m2 eGFR (estimated Glomerular Filtration Rate) is an estimated value, calculated from the patient's serum creatinine using the MDRD equation. It is NOT the patient's actual GFR. The eGFR provides a more clinically useful measure of kidney disease than serum creatinine alone.This calculation takes sex and race into account, if the information is provided. If the race is not provided, and the patient is -Pakistani, multiply by 1.212. If sex is not provided, and the patient is female, multiply by 0.742. Results for patients <18 years of age have not been validated by the MDRD study and should be interpreted with caution. eGFR Result Interpretation:eGFR > or=60 is in the Normal RangeeGFR < 60 may mean kidney diseaseeGFR < 15 may mean kidney failure Ranges recommended by the National Kidney Foundation, http://nkdep.nih.gov Lipase [id number] 09:40:14* Test Item Value Reference Range Comments Lipase Level (test code=Lipase Level) 40 U/L 13-60 Comprehensive Metabolic [id number] 09:40:14* Test Item Value Reference Range Comments Sodium Level (test code=Sodium Level) 139.0 mmol/L 135.0-145.0 Potassium Level (test code=Potassium Level) 4.0 mmol/L 3.5-5.1 Chloride Level (test code=Chloride Level) 100 mmol/L 98-105 CO2 (test code=CO2) 22 mmol/L 22-29 Anion Gap (test code=Anion Gap) 17 mmol/L 7-16 BUN (test code=BUN) 9.40 mg/dL 6.00-20.00 Creatinine Level (test code=Creatinine Level) 1.00 mg/dL 0.70-1.20 BUN/Creat Ratio (test code=BUN/Creat Ratio) 9 Glucose Level (test code=Glucose Level) 269 mg/dL 70-115 Calcium Level (test code=Calcium Level) 9.4 mg/dL 8.3-10.5 Alk Phos (test code=Alk Phos) 109 U/L 40-129 Bilirubin Total (test code=Bilirubin Total) 0.6 mg/dL 0.1-0.9 Albumin Level (test code=Albumin Level) 4.1 g/dL 3.5-5.2 Protein Total (test code=Protein Total) 7.4 g/dL 6.4-8.3 ALT (test code=ALT) 12 U/L 1-41 AST (test code=AST) 23 U/L 1-40 Globulin (test code=Globulin) 3.3 g/dL 2.9-3.1 A/G Ratio (test code=A/G Ratio) 1.2 ratio eGFR AA (test code=eGFR AA) >60 mL/min/1.73 m2 eGFR (estimated Glomerular Filtration Rate) is an estimated value, calculated from the patient's serum creatinine using the MDRD equation. It is NOT the patient's actual GFR. The eGFR provides a more clinically useful measure of kidney disease than serum creatinine alone.This calculation takes sex and race into account, if the information is provided. If the race is not provided, and the patient is -Pakistani, multiply by 1.212. If sex is not provided, and the patient is female, multiply by 0.742. Results for patients <18 years of age have not been validated by the MDRD study and should be interpreted with caution. eGFR Result Interpretation:eGFR > or=60 is in the Normal RangeeGFR < 60 may mean kidney diseaseeGFR < 15 may mean kidney failure Ranges recommended by the National Kidney Foundation, http://nkdep.nih.gov eGFR Non-AA (test code=eGFR Non-AA) >60.00 mL/min/1.73 m2 eGFR (estimated Glomerular Filtration Rate) is an estimated value, calculated from the patient's serum creatinine using the MDRD equation. It is NOT the patient's actual GFR. The eGFR provides a more clinically useful measure of kidney disease than serum creatinine alone.This calculation takes sex and race into account, if the information is provided. If the race is not provided, and the patient is -Pakistani, multiply by 1.212. If sex is not provided, and the patient is female, multiply by 0.742. Results for patients <18 years of age have not been validated by the MDRD study and should be interpreted with caution. eGFR Result Interpretation:eGFR > or=60 is in the Normal RangeeGFR < 60 may mean kidney diseaseeGFR < 15 may mean kidney failure Ranges recommended by the National Kidney Foundation, http://nkdep.nih.gov Urinalysis [id number] 09:38:16* Test Item Value Reference Range Comments UA WBC (test code=UA WBC) 0-5 0-5 UA RBC (test code=UA RBC) 11-19 0-5 UA Bacteria (test code=UA Bacteria) None Seen UA Squam Epithelial (test code=UA Squam Epithelial) 0-5 Complete Blood Count with [id number] 09:29:42* Test Item Value Reference Range Comments WBC (test code=WBC) 4.4 x10 4.4-10.5 RBC (test code=RBC) 4.25 x10 4.10-5.70 Hgb (test code=Hgb) 13.2 g/dL 13.4-17.4 Hct (test code=Hct) 38.5 % 38.7-52.0 MCV (test code=MCV) 90.60 fL 80.00-100.00 MCHC (test code=MCHC) 34.30 g/dL 32.00-37.50 MCH (test code=MCH) 31.1 pg 27.0-32.5 RDW CV (test code=RDW CV) 13.2 % 11.5-14.5 Platelets (test code=Platelets) 274.0 x10 140.0-440.0 MPV (test code=MPV) 8.9 fL Slide Review (test code=Slide Review) Auto Auto Result created by GL_SJM_SLIDE_REV_AUTO nRBC (test code=nRBC) 0 NRBC Abs (test code=NRBC Abs) 0.00 x10 IPF (test code=IPF) 0 % Automated [id number] 09:29:42* Test Item Value Reference Range Comments Neutro Auto (test code=Neutro Auto) 67.0 % 36.0-70.0 Lymph Auto (test code=Lymph Auto) 24.4 % 12.0-44.0 Sheridan Auto (test code=Sheridan Auto) 6.8 % 0.0-11.0 Eos, Auto (test code=Eos, Auto) 0.9 % 0.0-7.0 Basophil Auto (test code=Basophil Auto) 0.7 % 0.0-2.0 Neutro Absolute (test code=Neutro Absolute) 3.0 x10 1.6-7.4 Lymph Absolute (test code=Lymph Absolute) 1.08 x10 .50-4.60 Sheridan Absolute (test code=Sheridan Absolute) .30 x10 .00-1.20 Eos Absolute (test code=Eos Absolute) 0.04 x10 0.00-0.74 Baso Absolute (test code=Baso Absolute) 0.03 x10 0.00-0.21 IG [id number] 09:29:42* Test Item Value Reference Range Comments IG (test code=IG) 0.2 % 0.0-5.0 IG Abs (test code=IG Abs) 0 x10 Urinalysis with Culture, if [id number] 09:26:49* Test Item Value Reference Range Comments UA Color (test code=UA Color) STRAW Yellow UA Appear (test code=UA Appear) CLEAR Clear UA pH (test code=UA pH) 7 UA Spec Grav (test code=UA Spec Grav) 1.013 1.001-1.035 UA Glucose (test code=UA Glucose) 1000 mg/dL Negative UA Bili (test code=UA Bili) NEG Negative UA Ketones (test code=UA Ketones) NEG Negative UA Blood (test code=UA Blood) 50 cells/mcL Negative UA Protein (test code=UA Protein) 500 mg/dL Negative UA Urobilinogen (test code=UA Urobilinogen) 0.2 mg/dL UA Nitrite (test code=UA Nitrite) NEG Negative UA Leuk Est (test code=UA Leuk Est) NEG Negative UA Micro Ind? (test code=UA Micro Ind?) Indicated Not Indicated Result created by rule GL_SJM_UA_MICRO_IND CT Brain/Head w/o [id number] 22:23:27Patient: GRANT LAURENT Date/Time01/08/2019 22:17 CSTReason for ExamAltered level of consciousnessReportCT SCAN OF THE HEAD WITHOUT CONTRASTLocation: [id number] HISTORY: Altered level of consciousnessTECHNIQUE: Helical CT was performed from the skull base to the vertex without IV contrast using 5mm slice thicknesses. Coronal and sagittal images were reconstructed. Exam was performed on an up-to-date helical CT scanner. Exam was performed within 24 hours of the patient's arrival to the facility. Exam performed without IV contrast has limited sensitivity for detection of mass or inflammatory change. This exam was performed according to our departmental dose- optimization program, which includes automatic exposure control, adjustment of mA and/or KV according to patient size, and or use of iterative reconstruction technique.DLP: 1336 mGy*cmComparison study August 07, 2017FINDINGS:There is mild mucosal thickening in the left maxillary sinus. Postsurgical changes noted at the right orbit with some loss of volume in the globe relative to the left orbit. There is diffuse mild to moderate microvascular white matter change. The visualized bony structures are normal. There is no evidence of mass, mass effect, fluid collection, hemorrhage, or evolving infarction. There is no evid ence of epidural, subdural, or intraparenchymal hematoma.IMPRESSION:1. No acute brain finding demonstrated.2. Mild to moderate microvascular white matter change .3. Postsurgical changes of the right orbit noted. Clinical correlation recommen ded.4. Mild left maxillary sinusitis. Final Dictated by: MD Powell Maria VDictated DT/TM: 01/08/2019 10:21 pmSigned by: MD Powell Maria VSigne d (Electronic Signature): 01/08/2019 10:23 pmCT Abdomen and Pelvis w/ Contrast 2018-10-07 19:32:38Patient: GRANT LAURENT Date/Time10/07/2018 18:58 CSTReason for ExamAbdominal painReportCT OF THE ABDOMEN AND PELVIS WITH AND WITHOUT CONTRASTLocation code: [id number] HISTORY: Abdominal painCOMPARISON: CT abdomen pelvis 08/23/2018TECHNIQUE: 5 mm contiguous axial images were obtained from the diaphragmatic dome through the symphysis pubis before and after administration of 100 mL Omnipaque 300 intravenous contrast and after oral contrast with delayed images through the kidneys and collecting systems. Coronal reformations were also obtained. One or more of the following dose reduction techniques were used: Automated exposure control, adjustment of the mA and/or kV according to patient size, and/or utilization of iterative reconstruction technique. DLP: 460 mGy-cmFINDINGS: AbdomenThere is bibasilar atelectasis and scarring.. There is air cyst in the right lower lobe.There is surgical absence of the gallbladder. The liver, spleen, pancreas, adrenal glands and kidneys are within normal limits.Stomach and gastroesophageal junction are within normal limits. Small bowel loops are normal in caliber. There is no obstruction. No colonic wall thickening is seen. Appendix is not visualized.. No inflammatory changes are identified in the right lower quadrant. There is no free intraperitoneal air or fluid. There is no mesenteric or retroperitoneal adenopathy.Abdominal aorta and inferior vena cava are within normal limits.FINDINGS: PelvisUrinary bladder is mildly distended. No bladder wall thickening. Remaining intrapelvic contents are unremarkable. The urinary bladder is adequately distended. There is no free pelvic fluid.There is no pelvic or inguinal adenopathy.Degenerative changes are noted at the right hip joint, unchanged. Mild spondylosis is noted in the lumbar spine.IMPRESSION: No acute findings. No significant interval change. Final Dictated by: MD Butterfield Roman PDictated DT/TM: 10/07/2018 7:27 pmSigned by: MD Butterfield Roman PSigned (Electronic Signature): 10/07/2018 7:32 pmCT Abdomen and Pelvis w/ [id number] 20:16:00Patient: GRANT LAURENT Date/Time08/23/2018 19:53 CDTReason for ExamAbdominal painReportCT OF THE ABDOMEN AND PELVIS WITH CONTRASTLocation code: [id number] HISTORY: Abdominal painCOMPARISON: 06/16/2018TECHNIQUE: 5 mm contiguous axial images were obtained from the diaphragmatic dome through the symphysis pubis after administration of 100 mL Omnipaque 300 intravenous contrast with delayed images through the kidneys and collecting systems. Coronal reformations were also obtained. One or more of the following dose reduction techniques were used: Automated exposure control, adju stment of the mA and/or kV according to patient size, and/or utilization of iter ative reconstruction technique. DLP: 460 mGy-cmFINDINGS: AbdomenThere is bandli ke scarring versus subsegmental atelectasis in the left lower lobe. There is air cyst in the right lower lobe.There is surgical absence of the gallbladder. The liver, spleen, pancreas, adrenal glands and kidneys are within normal limits.Sto mach and gastroesophageal junction are within normal limits. Small bowel loops a re normal in caliber. There is no obstruction. There is moderate stool within co issa followed to the level of the rectum. No colonic wall thickening is seen. Terrance endix is not visualized.. No inflammatory changes are identified in the right lo wer quadrant. There is no free intraperitoneal air or fluid. There is no mesente leonard or retroperitoneal adenopathy.Abdominal aorta and inferior vena cava are wit hin normal limits.FINDINGS: PelvisUrinary bladder is mildly distended. No bladde r wall thickening. Remaining intrapelvic contents are unremarkable. There is no free pelvic fluid.There is no pelvic or inguinal adenopathy.Degenerative changes are noted at the right hip joint, unchanged. Mild spondylosis is noted in the l umbar spine.IMPRESSION:No acute abnormality within the abdomen and pelvis.Append ix is not visualized.Moderate stool within colon may indicate mild degree of con stipation. Final Dictated by: MD Renee Alan FDictated DT/TM: 08/23 7:58 pmSigned by: MD Renee Alan FSigned (Electronic Signature): 018 8:16 pmCT Abdomen and Pelvis w/o [id number] 06:14:47Patient: GRANT LAURENT Date/Time06/16/2018 05:30 CDTReason for ExamAbdominal painReportAFTER HOURS SE RVICE ON: 06/16/2018 6:11 AMCT Scan of the Abdomen and Pelvis Without ContrastLoc ation Code Z30Srhopth: Abdominal painTechnique: Axial and reconstructed coronal scans were performed on a helical scanner pre oral and IV contrast. Study is li mited secondary to lack of oral and IV contrast.One or more of the following dos e reduction techniques were used: Automated exposure control, adjustment of the mA and/or kV according to patient size, and/or utilization of iterative reconstr uction technique.Findings:Liver: No significant findings.Gallbladder/Biliary: Ga llbladder is absent.Pancreas: No significant findings.Spleen: No significant fi ndings.Adrenals: No significant findings.Kidneys: There is no nephrolithiasis in either kidney. There is perinephric stranding around the left kidney without hy dronephrosis.Bladder: No significant findings.Bowel: No significant findings. Th e appendix is not visualized.Impression:1. Left perinephric stranding without hydronephrosis or urinary calculi. Findings may be consistent with a recently pa ssed calculus, pyelonephritis or other etiologies. Clinical correlation recommen ded. Recommend CT with IV contrast and delays if clinically indicated.2. Nonvi sualization of the appendix.3. No bowel junction or inflammatory changes. Final Dictated by: MD Issa Mohammad TDictated DT/TM: 06/16/2018 6 :11 amSigned by: MD Luis Manuel, Madalyn TSigned (Electronic Signature): 2017 6:14 amUrinalysis [id number] 11:05:00* Test Item Value Reference Range Comments Color (test code=COLOR) Yellow Yellow,Straw,Pl yellow Clarity (test code=CLAR) Clear Clear Specific [place] (test code=SPGR) 1.038 1.001-1.035 pH (test code=PH) 5.0 5.0-9.0 Ketone (test code=KET) 5 mg/dL Negative Glucose (test code=GLUCUR) 1000 mg/dL Negative Protein (test code=PROT) Negative mg/dL Negative Bilirubin (test code=BILI) Negative mg/dL Negative Occult Blood (test code=UDOB) Trace Negative Urobilinogen (test code=UROB) 0.2 mg/dL 0.2-1.0 Nitrite (test code=NIT) Negative Negative Leuk Esterase (test code=LEUK) Negative Negative Micros Exam (test code=MEXAM) Indicated Epithelial Cells (test code=EPI) 0-2 /LPF 0-30 WBC, Urine (test code=UWBC) 0-5 /HPF 0-5 RBC, Urine (test code=URBC) 0-3 /HPF 0-5 Bacteria (test code=BACT) Few /HPF CBC with [id number] 10:30:00* Test Item Value Reference Range Comments WBC (test code=WBC) 4.2 K/cumm 4.4-10.5 RBC (test code=RBC) 3.69 M/cumm 4.10-5.70 Hemoglobin (test code=HGB) 11.7 gm/dL 13.4-17.4 Hematocrit (test code=HCT) 34.0 % 38.7-52.0 MCV (test code=MCV) 92.1 fL 80-100 MCH (test code=MCH) 31.7 pg 27.0-32.5 MCHC (test code=MCHC) 34.4 g/dL 32.0-37.5 RDW (test code=RDW) 12.7 % 11.5-14.5 Platelet Count (test code=PLTCT) 219 K/cumm 140-440 MPV (test code=MPV) 6.9 fL Diff Method (test code=DIFFM) Auto Neutrophil (test code=NEUT) 62.1 % 36-70 Lymphocyte (test code=LYMPH) 30.2 % 12-44 Monocyte (test code=MONO) 5.8 % 0-11 Eosinophil (test code=EOS) 1.4 % 0-7 Basophil (test code=BASO) 0.4 % 0-2 Neutro Abs (test code=ANEUT) 2.6 K/cumm 1.6-7.4 Lymph Abs (test code=ALYMPH) 1.3 K/cumm 0.5-4.6 [place] Abs (test code=AMONO) 0.3 K/cumm 0.0-1.2 Eos Abs (test code=AEOS) 0.06 K/cumm 0.00-0.74 Baso Abs (test code=ABASO) 0.0 K/cumm 0.00-0.21 [id number] 10:28:00* Test Item Value Reference Range Comments Amphetamine (test code=AMPH) Negative Negative For diagnostic purposes only, positive results should always be assessedin conjunctionwith the patient's medical history,clinical examination and otherfindings.To fulfill legal requirements, a more specific alternate chemical methodmust be used inorder to obtain a Confirmed analytical result. GC/MS is the preferred confirmatory method. Barbiturates (test code=MARRY) Negative Negative Benzodiazepine (test code=MARTY) Negative Negative Cocaine (test code=COCA) Negative Negative Methadone (test code=MTHD) Negative Negative Opiates (test code=OPIA) Negative Negative PCP (test code=PCP) Negative Negative Propoxyphene (test code=PROPOX) Negative Negative THC (test code=THC) POSITIVE Negative Comprehensive Metabolic [id number] 10:21:00* Test Item Value Reference Range Comments Sodium (test code=NA) 127 mmol/L 135-145 Potassium (test code=K) 3.9 mmol/L 3.5-5.1 Chloride (test code=CL) 90 mmol/L 98-105 Carbon Dioxide (test code=CO2) 26 mmol/L 22-29 Glucose (test code=GLU) 499 mg/dL 70-115 Blood Urea Nitrogen (test code=BUN) 13 mg/dL 6-20 Creatinine (test code=CREAT) 1.2 mg/dL 0.7-1.2 Calcium (test code=CA) 9.2 mg/dL 8.3-10.5 Prot Total (test code=TP) 6.3 g/dL 6.4-8.3 Albumin (test code=ALB) 3.7 g/dL 3.5-5.2 A/G Ratio (test code=AGRATIO) 1.4 Ratio Globulin (test code=GLOB) 2.6 2.9-3.1 Bili Total (test code=TBIL) 0.5 mg/dL 0.1-0.9 Alk Phos (test code=APHOS) 108 U/L 40-129 AST (test code=AST) 17 U/L 1-40 ALT (test code=ALT) 16 U/L 1-41 BUN/Creatinine Ratio (test code=BCRATIO) 10.8 Anion Gap (test code=AGAP) 11 mmol/L 7-16 Estimated GFR (test code=GFR) >60 mL/min/1.73m2 eGFR (estimated Glomerular Filtration Rate) is an estimated value,calculated from the patient's serum creatinine using the MDRD equation.It is NOT the patient's actual GFR. The eGFR provides a more clinicallyuseful measure of kidney disease than serum creatinine alone.This calculation takes sex and race into account, if the informationis provided. If the race is not provided, and the patient isAfrican-Pakistani, multiply by 1.212. If sex is not provided, and thepatient is female, multiply by 0.742. Results for patients <18 years ofage have not been validated by the MDRD study and should be interpretedwith caution.eGFR Result Interpretation:eGFR > or=60 is in the Normal RangeeGFR < 60 may mean kidney diseaseeGFR < 15 may mean kidney failureRanges recommended by the National Kidney Foundat ion,http://nkdep.nih.gov CK [id number] 10:21:00* Test Item Value Reference Range Comments CK (test code=CK) 138 U/L 39-308 Troponin [id number] 10:17:00* Test Item Value Reference Range Comments Troponin T (test code=BRITTANIE) <0.010 ng/mL 0.000-0.090 XR CHEST 1 [id number] 09:14:50EXAM: Portable AP chest x-rayLOCATION: R16 INDICATION: Chest pain COMPARISON: NoneFINDINGS:The cardiomediastinal silhouette is unremarkable. 6 mm calcifiedgranuloma in the left lower lobe. There is no focal consolidation. There is no pleural effusion or pneumothorax. There are degenerative changes in the spine.IMPRESSION:No acute cardiopulmonary disease.POC Glucose, [id number] 07:58:00* Test Item Value Reference Range Comments POC Glucose (test code=POCGLUC) 326 mg/dL 70-115 Notify RN or MDIf you consider your patient critically ill, the Farhad Accu-Chek InformII metershould not be used for Glucose determinations.Draw a venous Glucose and send to the Main Lab for Analysis. Basic Metabolic [id number] 07:14:00* Test Item Value Reference Range Comments Sodium (test code=NA) 133 mmol/L 135-145 Potassium (test code=K) 3.6 mmol/L 3.5-5.1 Chloride (test code=CL) 91 mmol/L 98-105 Carbon Dioxide (test code=CO2) 25 mmol/L 22-29 Glucose (test code=GLU) 302 mg/dL 70-115 Blood Urea Nitrogen (test code=BUN) 25 mg/dL 6-20 Creatinine (test code=CREAT) 1.8 mg/dL 0.7-1.2 Calcium (test code=CA) 9.2 mg/dL 8.3-10.5 BUN/Creatinine Ratio (test code=BCRATIO) 13.9 Anion Gap (test code=AGAP) 17 mmol/L 7-16 Estimated GFR (test code=GFR) 51 mL/min/1.73m2 eGFR (estimated Glomerular Filtration Rate) is an estimated value,calculated from the patient's serum creatinine using the MDRD equation.It is NOT the patient's actual GFR. The eGFR provides a more clinicallyuseful measure of kidney disease than serum creatinine alone.This calculation takes sex and race into account, if the informationis provided. If the race is not provided, and the patient isAfrican-Pakistani, multiply by 1.212. If sex is not provided, and thepatient is female, multiply by 0.742. Results for patients <18 years ofage have not been validated by the MDRD study and should be interpretedwith caution.eGFR Result Interpretation:eGFR > or=60 is in the Normal RangeeGFR < 60 may mean kidney diseaseeGFR < 15 may mean kidney failureRanges recommended by the National Kidney Foundat ion,http://nkdep.nih.gov POC Glucose, [id number] 20:58:00* Test Item Value Reference Range Comments POC Glucose (test code=POCGLUC) 100 mg/dL 70-115 Notify RN or MDIf you consider your patient critically ill, the Farhad Accu-Chek InformII metershould not be used for Glucose determinations.Draw a venous Glucose and send to the Main Lab for Analysis. MRI BRAIN W/WO [id number] 16:07:21EXAM: MRI BRAIN WITH AND WITHOUT CONTRASTINDICATION: SeizureCOMPARISON: CT head dated August 07, 2017TECHNIQUE: Multiplanar, multisequence MR imaging of the brain wasobtained with and without administration of intravenous contrast. IV contrast: 20 cc of MagnevistFINDINGS: There is a focal area of restricted diffusion involving the rightfrontal lobe white matter. There is corresponding hyperintense O6icpnlxe. This most likely represents a subacute lacunar infarct. Nohemorrhagic transformation is identified.There are areas of hyperintense T2 changes within the supratentorialwhite matter consistent with moderate chronic microvascular ischemicchanges. The ventricles and sulci are normal in size and shape with nomidline shift or mass effect. The basal cisterns are patent. Theposterior f kenneth and fourth ventricle are normal. Intracranial flow voids are normal.No abno rmal enhancement seen on the postcontrast images. Intracranialvasculature enhanc es normally.The paranasal sinuses and mastoid air cells are clear. The skull bas e isintact. No calvarial lesions. The orbits and globes are unremarkable.IMPRESS ION:1. Focal subacute lacunar infarct involving the right frontal whitematter.2 . Moderate chronic microvascular ischemic changes.3. No abnormal enhancement.L OCATION: R16POC Glucose, [id number] 14:58:00* Test Item Value Reference Range Comments POC Glucose (test code=POCGLUC) 240 mg/dL 70-115 Notify RN or MDIf you consider your patient critically ill, the Farhad Accu-Chek InformII metershould not be used for Glucose determinations.Draw a venous Glucose and send to the Main Lab for Analysis. POC Glucose, [id number] 12:07:00* Test Item Value Reference Range Comments POC Glucose (test code=POCGLUC) 253 mg/dL 70-115 Notify RN or MDIf you consider your patient critically ill, the Farhad Accu-Chek InformII metershould not be used for Glucose determinations.Draw a venous Glucose and send to the Main Lab for Analysis. Thyroid Stimulating Hormone (TSH)2017-08-08 09:48:00* Test Item Value Reference Range Comments TSH (test code=TSH) 0.66 mIU/mL 0.270-4.200 Free T4 (Free Thyroxine)2017-08-08 09:48:00* Test Item Value Reference Range Comments T4, Free (test code=FT4) 1.54 ng/dL 0.930-1.700 CBC with [id number] 09:42:00* Test Item Value Reference Range Comments WBC (test code=WBC) 8.1 K/cumm 4.4-10.5 RBC (test code=RBC) 4.47 M/cumm 4.10-5.70 Hemoglobin (test code=HGB) 14.2 gm/dL 13.4-17.4 Hematocrit (test code=HCT) 39.5 % 38.7-52.0 MCV (test code=MCV) 88.4 fL 80-100 MCH (test code=MCH) 31.9 pg 27.0-32.5 MCHC (test code=MCHC) 36.1 g/dL 32.0-37.5 RDW (test code=RDW) 12.6 % 11.5-14.5 Platelet Count (test code=PLTCT) 211 K/cumm 140-440 MPV (test code=MPV) 7.5 fL Diff Method (test code=DIFFM) Auto Neutrophil (test code=NEUT) 89.8 % 36-70 Lymphocyte (test code=LYMPH) 5.9 % 12-44 Monocyte (test code=MONO) 3.7 % 0-11 Eosinophil (test code=EOS) 0.5 % 0-7 Basophil (test code=BASO) 0.0 % 0-2 Neutro Abs (test code=ANEUT) 7.2 K/cumm 1.6-7.4 Lymph Abs (test code=ALYMPH) 0.5 K/cumm 0.5-4.6 [place] Abs (test code=AMONO) 0.3 K/cumm 0.0-1.2 Eos Abs (test code=AEOS) 0.04 K/cumm 0.00-0.74 Baso Abs (test code=ABASO) 0.0 K/cumm 0.00-0.21 Basic Metabolic [id number] 09:38:00* Test Item Value Reference Range Comments Sodium (test code=NA) 131 mmol/L 135-145 Potassium (test code=K) 3.3 mmol/L 3.5-5.1 Chloride (test code=CL) 89 mmol/L 98-105 Carbon Dioxide (test code=CO2) 20 mmol/L 22-29 Glucose (test code=GLU) 278 mg/dL 70-115 Blood Urea Nitrogen (test code=BUN) 16 mg/dL 6-20 Creatinine (test code=CREAT) 1.2 mg/dL 0.7-1.2 Calcium (test code=CA) 8.8 mg/dL 8.3-10.5 BUN/Creatinine Ratio (test code=BCRATIO) 13.3 Anion Gap (test code=AGAP) 22 mmol/L 7-16 Estimated GFR (test code=GFR) >60 mL/min/1.73m2 eGFR (estimated Glomerular Filtration Rate) is an estimated value,calculated from the patient's serum creatinine using the MDRD equation.It is NOT the patient's actual GFR. The eGFR provides a more clinicallyuseful measure of kidney disease than serum creatinine alone.This calculation takes sex and race into account, if the informationis provided. If the race is not provided, and the patient isAfrican-Pakistani, multiply by 1.212. If sex is not provided, and thepatient is female, multiply by 0.742. Results for patients <18 years ofage have not been validated by the MDRD study and should be interpretedwith caution.eGFR Result Interpretation:eGFR > or=60 is in the Normal RangeeGFR < 60 may mean kidney diseaseeGFR < 15 may mean kidney failureRanges recommended by the National Kidney Foundat ion,http://nkdep.nih.gov Magnesium, [id number] 09:38:00* Test Item Value Reference Range Comments Magnesium (test code=MG) 1.8 mg/dL 1.7-2.5 Lipid [id number] 09:38:00* Test Item Value Reference Range Comments Cholesterol (test code=CHOL) 217 mg/dL 0-200 Triglycerides (test code=TRIG) 87 mg/dL 9-200 HDL (test code=HDL) 51 mg/dL 40-60 Chol/HDL (test code=CHOLPHDL) 4.3 Ratio 0.0-5.0 LDL, Calculated (test code=LDLC) 149 0-130 (NOTE)RISK OF HEART DISEASEPublished by Pakistani Heart AssociationAnalyte Optimal Boderline Increased RiskCHOL <200 200-239 >240TRIG <150 150- 199 >200HDL Male: >60 <40HDL Female: >60 <50LDL <100 130-159 >160LDL NEAR OPTIMAL IS 100-129 VLDL (test code=VLDL) 17 mg/dL 5-40 LDL/HDL (test code=LDLPHDL) 3 Glycosylated [id number] 09:23:00* Test Item Value Reference Range Comments HBA1c (test code=HBA1C) 10.9 % 4.8-5.9 POC Glucose, [id number] 07:56:00* Test Item Value Reference Range Comments POC Glucose (test code=POCGLUC) 265 mg/dL 70-115 Notify RN or MDIf you consider your patient critically ill, the Farhad Accu-Chek InformII metershould not be used for Glucose determinations.Draw a venous Glucose and send to the Main Lab for Analysis. POC Glucose, [id number] 23:23:00* Test Item Value Reference Range Comments POC Glucose (test code=POCGLUC) 302 mg/dL 70-115 Notify RN or MDIf you consider your patient critically ill, the Farhad Accu-Chek InformII metershould not be used for Glucose determinations.Draw a venous Glucose and send to the Main Lab for Analysis. 31002&PELVIS [id number] 20:33:30Examination: Abdomen and pelvic CT with contrastLocation code: I54Kpfowhyfkf: NoneTechnique:Axial postcontrast contiguous images were obtained through the abdomenand pelvis followed by coronal and sagittal reformations. One or more ofthe following dose reduction techniques were used: Automated exposurecontrol, adjustment of the mA and/or kV according to patient size,and/or utilization of iterative reconstruction technique.100 cc Isovue-300 administeredDiscussion:Clinical history is remarkable for gastroparesis abdominal pain andvomiting. Lung bases are clear with exception of a 1.5 cm right lowerlobe bulla and calcified granuloma in the left lower lobe.Liver appears normal. Gallbladder is absent. Spleen and pancreas appearnormal. The adrenal gland bilaterally is normal, kidneys demonstrat euniform enhancement.Caliber of the bowel is within normal limits. Appendix is v isualized andit is normal. Mild constipation is documented. Minimal fluid is pre sentwithin the stomach, no significant distention documented.Bladder, prostate, and seminal vesicles are within normal limits.Degenerative changes of the spine are noted, no lytic or blastic lesionsare present within the osseous structures. Focal sclerosis is present inthe right femoral neck.Impression:1. No acute abdo minopelvic abnormality.Urinalysis [id number] 20:31:00* Test Item Value Reference Range Comments Color (test code=COLOR) Yellow Yellow,Straw,Pl yellow Clarity (test code=CLAR) Clear Clear Specific [place] (test code=SPGR) 1.014 1.001-1.035 pH (test code=PH) 6.5 5.0-9.0 Ketone (test code=KET) Negative mg/dL Negative Glucose (test code=GLUCUR) 1000 mg/dL Negative Protein (test code=PROT) 150 mg/dL Negative Bilirubin (test code=BILI) Negative mg/dL Negative Occult Blood (test code=UDOB) Moderate Negative Urobilinogen (test code=UROB) 0.2 mg/dL 0.2-1.0 Nitrite (test code=NIT) Negative Negative Leuk Esterase (test code=LEUK) Negative Negative Micros Exam (test code=MEXAM) Indicated Epithelial Cells (test code=EPI) None Seen /LPF 0-30 WBC, Urine (test code=UWBC) 0-5 /HPF 0-5 RBC, Urine (test code=URBC) 6-10 /HPF 0-5 Bacteria (test code=BACT) None /HPF CT HEAD OR BRAIN WO [id number] 20:30:35Examination: Head CT without contrastLocation code: D14Ouzelzvruq: NoneTechnique:Axial contiguous images through the brain were obtained without contrastmedia. Coronal and sagittal reformations were obtained. One or more ofthe following dose reduction techniques were used: Automated exposurecontrol, adjustment of the mA and/or kV according to patient size,and/or utilization of iterative reconstruction technique. Discussion:Clinical history is remarkable for seizure. There is no evidence ofhydrocephalus, midline shift, extra-axial fluid collection, hemo rrhage,acute infarction, or space-occupying mass lesion. The ventura-white matterdi fferentiation is preserved. The calvarium and the paranasal sinuses are within n ormal limits.Increased density is present throughout the right globe, postsurgic al.Impression:1. No acute intracranial abnormality. XR CHEST 1 [id number] 20:28:22Examination: Chest 1 viewLocation code: D61Wrwyflruao: NoneDiscussion:Clinical history is remarkable for seizure. Cardiac silhouette is normalin size. No consolidation, effusion, or pneumothorax is appreciated. Theosseous structures are unremarkable. Impression:No acute cardiopulmonary abnormality.[id number] 19:58:00* Test Item Value Reference Range Comments Amphetamine (test code=AMPH) Negative Negative For diagnostic purposes only, positive results should always be assessedin conjunctionwith the patient's medical history,clinical examination and otherfindings.To fulfill legal requirements, a more specific alternate chemical methodmust be used inorder to obtain a Confirmed analytical result. GC/MS is the preferred confirmatory method. Barbiturates (test code=MARRY) Negative Negative Benzodiazepine (test code=MARTY) Negative Negative Cocaine (test code=COCA) Negative Negative Methadone (test code=MTHD) Negative Negative Opiates (test code=OPIA) Negative Negative PCP (test code=PCP) Negative Negative Propoxyphene (test code=PROPOX) Negative Negative THC (test code=THC) POSITIVE Negative Comprehensive Metabolic [id number] 19:27:00* Test Item Value Reference Range Comments Sodium (test code=NA) 131 mmol/L 135-145 Potassium (test code=K) 3.6 mmol/L 3.5-5.1 Chloride (test code=CL) 93 mmol/L 98-105 Carbon Dioxide (test code=CO2) 22 mmol/L 22-29 Glucose (test code=GLU) 331 mg/dL 70-115 Blood Urea Nitrogen (test code=BUN) 15 mg/dL 6-20 Creatinine (test code=CREAT) 1.1 mg/dL 0.7-1.2 Calcium (test code=CA) 9.5 mg/dL 8.3-10.5 Prot Total (test code=TP) 7.0 g/dL 6.4-8.3 Albumin (test code=ALB) 4.5 g/dL 3.5-5.2 A/G Ratio (test code=AGRATIO) 1.8 Ratio Globulin (test code=GLOB) 2.5 2.9-3.1 Bili Total (test code=TBIL) 0.9 mg/dL 0.1-0.9 Alk Phos (test code=APHOS) 118 U/L 40-129 AST (test code=AST) 27 U/L 1-40 ALT (test code=ALT) 20 U/L 1-41 BUN/Creatinine Ratio (test code=BCRATIO) 13.6 Anion Gap (test code=AGAP) 16 mmol/L 7-16 Estimated GFR (test code=GFR) >60 mL/min/1.73m2 eGFR (estimated Glomerular Filtration Rate) is an estimated value,calculated from the patient's serum creatinine using the MDRD equation.It is NOT the patient's actual GFR. The eGFR provides a more clinicallyuseful measure of kidney disease than serum creatinine alone.This calculation takes sex and race into account, if the informationis provided. If the race is not provided, and the patient isAfrican-Pakistani, multiply by 1.212. If sex is not provided, and thepatient is female, multiply by 0.742. Results for patients <18 years ofage have not been validated by the MDRD study and should be interpretedwith caution.eGFR Result Interpretation:eGFR > or=60 is in the Normal RangeeGFR < 60 may mean kidney diseaseeGFR < 15 may mean kidney failureRanges recommended by the National Kidney Foundat ion,http://nkdep.nih.gov Alcohol/Ethanol, [id number] 19:27:00* Test Item Value Reference Range Comments Alcohol, Ethyl (test code=ETOH) <0.01 g/dL 0.00-0.01 Intoxicated 0.080 g/dL or more [id number] 19:27:00* Test Item Value Reference Range Comments Amphetamine (test code=AMPH) Negative Negative For diagnostic purposes only, positive results should always be assessedin conjunctionwith the patient's medical history,clinical examination and otherfindings.To fulfill legal requirements, a more specific alternate chemical methodmust be used inorder to obtain a Confirmed analytical result. GC/MS is the preferred confirmatory method. Barbiturates (test code=MARRY) Negative Negative Benzodiazepine (test code=MARTY) Negative Negative Cocaine (test code=COCA) Negative Negative Methadone (test code=MTHD) Negative Negative Opiates (test code=OPIA) Negative Negative PCP (test code=PCP) Negative Negative Propoxyphene (test code=PROPOX) Negative Negative THC (test code=THC) POSITIVE Negative Urinalysis [id number] 19:12:00* Test Item Value Reference Range Comments Color (test code=COLOR) Yellow Yellow,Straw,Pl yellow Clarity (test code=CLAR) Clear Clear Specific [place] (test code=SPGR) 1.027 1.001-1.035 pH (test code=PH) 5.0 5.0-9.0 Ketone (test code=KET) 15 mg/dL Negative Glucose (test code=GLUCUR) 1000 mg/dL Negative Protein (test code=PROT) 150 mg/dL Negative Bilirubin (test code=BILI) Negative mg/dL Negative Occult Blood (test code=UDOB) Small Negative Urobilinogen (test code=UROB) 0.2 mg/dL 0.2-1.0 Nitrite (test code=NIT) Negative Negative Leuk Esterase (test code=LEUK) Negative Negative Micros Exam (test code=MEXAM) Indicated Epithelial Cells (test code=EPI) None /LPF 0-30 WBC, Urine (test code=UWBC) None seen /HPF 0-5 RBC, Urine (test code=URBC) 2-5 /HPF 0-5 Bacteria (test code=BACT) None /HPF POC Glucose, [id number] 19:10:00* Test Item Value Reference Range Comments POC Glucose (test code=POCGLUC) 299 mg/dL 70-115 Notify RN or MDIf you consider your patient critically ill, the [facility] Accu-Chek InformII metershould not be used for Glucose determinations.Draw a venous Glucose and send to the Main Lab for Analysis. CBC with [id number] 19:05:00* Test Item Value Reference Range Comments WBC (test code=WBC) 4.2 K/cumm 4.4-10.5 RBC (test code=RBC) 4.34 M/cumm 4.10-5.70 Hemoglobin (test code=HGB) 13.7 gm/dL 13.4-17.4 Hematocrit (test code=HCT) 40.1 % 38.7-52.0 MCV (test code=MCV) 92.3 fL 80-100 MCH (test code=MCH) 31.5 pg 27.0-32.5 MCHC (test code=MCHC) 34.1 g/dL 32.0-37.5 RDW (test code=RDW) 13.0 % 11.5-14.5 Platelet Count (test code=PLTCT) 207 K/cumm 140-440 MPV (test code=MPV) 6.8 fL Diff Method (test code=DIFFM) Auto Neutrophil (test code=NEUT) 66.2 % 36-70 Lymphocyte (test code=LYMPH) 27.0 % 12-44 Monocyte (test code=MONO) 5.3 % 0-11 Eosinophil (test code=EOS) 1.1 % 0-7 Basophil (test code=BASO) 0.4 % 0-2 Neutro Abs (test code=ANEUT) 2.8 K/cumm 1.6-7.4 Lymph Abs (test code=ALYMPH) 1.1 K/cumm 0.5-4.6 [place] Abs (test code=AMONO) 0.2 K/cumm 0.0-1.2 Eos Abs (test code=AEOS) 0.05 K/cumm 0.00-0.74 Baso Abs (test code=ABASO) 0.0 K/cumm 0.00-0.21
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
[2019-12-15 15:27] VITALS: BP 146/91
--- NOTE | 2019-12-15 22:17 | Operative Report ---
DATE OF PROCEDURE: 12/15/2019 SURGEON: Tejas Eastman MD PROCEDURE: EGD with balloon dilatation, pyloric channel stricture, as well as biopsies. INDICATIONS FOR PROCEDURE: Upper abdominal pain, nausea, and vomiting. MEDICATIONS: The patient was done under MAC. Please see anesthesiologist's note. PROCEDURE IN DETAIL: With the patient in left lateral decubitus position, flexible fiberoptic Olympus gastroscope was introduced into the esophagus under direct visualization without any difficulty. There was some patchy erythema noted in distal esophagus. The scope was then advanced with ease into the stomach and a large amount of bile-tinged fluid was noted in the stomach that was suctioned with the scope. The mucosa overlying the antrum and the body revealed some diffuse erythema and mild to moderate edema. Biopsies were obtained, sent to stain for H pylori. The pyloric channel strictured and that was dilated to size 20 per TTS balloon dilators. The pylorus was then traversed with ease and the scope was advanced all the way to the second portion of the duodenum. Mucosa overlying the proximal second portion and duodenal bulb grossly appeared to be within normal limits. The scope was then withdrawn back into the stomach and retroflexed. Mucosa overlying the fundus and cardia appeared to be within normal limits. The scope was then straightened out. It was subsequently withdrawn. The patient tolerated the procedure well. IMPRESSION: 1. Distal esophagitis. 2. Gastritis, biopsied. Biopsies sent to stain for H pylori. 3. Large amount of retained bile tinged fluid in the stomach that was suctioned. 4. 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 PLAN: Follow up histology. Initiate Protonix 40 mg one p.o. q.a.m. a.c. Tejas Eastman MD [facility] /[id number]
== END | disposition home or self-care (01) ==
LOC: OR 11:31
PROVIDERS: ATTEND Internal Medicine Gastroenterology
DX: K29.70 Gastritis, unspecified, without bleeding (principal); K31.1 Adult hypertrophic pyloric stenosis; K20.9 Esophagitis, unspecified; K31.89 Other diseases of stomach and duodenum; K59.00 Constipation, unspecified; E11.9 Type 2 diabetes mellitus without complications; I10 Essential (primary) hypertension; F41.9 Anxiety disorder, unspecified; F31.9 Bipolar disorder, unspecified; Z79.4 Long term (current) use of insulin; Z86.73 Personal history of transient ischemic attack (TIA), and cerebral infarction without residual deficits
CPT/HCPCS: 36415; 43239; 43245; 43247; 82948; 93005; C1726; J2704; J3010; 43450